=== PATIENT | male | born 1950 | race Caucasian/White ===

== ENCOUNTER 2021-04-03 06:51 | Outpatient (CLI) | payer MEDICARE, SELFPAY ==
[2021-04-03 07:42] LABS: Alanine Aminotransferase 19 U/L (4-50); Albumin Level 4.5 g/dL (3.5-5.1); Alkaline Phosphatase 76 U/L (38-126); Anion Gap 7 mmol/L (8-16); Aspartate Amino Transferase 32 U/L (17-59); Bilirubin,Total 0.9 mg/dL (0.2-1.3); Blood Urea Nitrogen 16 mg/dL (9-20); Calcium 9.8 mg/dL (8.4-10.2); Carbon Dioxide 28 mmol/L (22-30); Chloride 103 mmol/L (98-107); Cholesterol 161 mg/dL (0-200); Estimated Glomerular Filt Rate > 60; Glucose 152 mg/dL (75-110); HDL Direct 42 mg/dL; Potassium 4.2 mmol/L (3.4-5.0); Sodium 138 mmol/L (137-145); Triglycerides 114 mg/dL (<150)
[2021-04-03 07:43] LABS: Hemoglobin A1C 7.1 % (<5.7)
[2021-04-03 07:54] LABS: LDL Cholesterol Direct 87 mg/dL
[2021-04-03 08:12] LABS: Prostate Specific Antigen 4.2 ng/mL (< OR = 4.0)
== END 2021-04-03 06:52 | disposition home or self-care (01) ==
PROVIDERS: PCP Internal Medicine; Visit Provider Internal Medicine
DX: E78.5 Hyperlipidemia, unspecified (principal); I10 Essential (primary) hypertension; Z51.81 Encounter for therapeutic drug level monitoring; E11.65 Type 2 diabetes mellitus with hyperglycemia; Z12.5 Encounter for screening for malignant neoplasm of prostate
CPT/HCPCS: 36415; 80053; 80061; 83036; 84153; G0103

== ENCOUNTER 2021-10-13 08:45 | Outpatient (CLI) | payer MEDICARE, SELFPAY ==
[2021-10-13 09:29] LABS: Alanine Aminotransferase 19 U/L (4-50); Albumin Level 4.8 g/dL (3.5-5.1); Alkaline Phosphatase 68 U/L (38-126); Anion Gap 10 mmol/L (8-16); Aspartate Amino Transferase 23 U/L (17-59); Bilirubin,Total 0.4 mg/dL (0.2-1.3); Blood Urea Nitrogen 20 mg/dL (9-20); Calcium 9.6 mg/dL (8.4-10.2); Carbon Dioxide 25 mmol/L (22-30); Chloride 103 mmol/L (98-107); Cholesterol 120 mg/dL (0-200); Estimated Glomerular Filt Rate > 60; Glucose 140 mg/dL (65-110); HDL Direct 38 mg/dL; Potassium 4.6 mmol/L (3.4-5.0); Sodium 138 mmol/L (137-145); Triglycerides 111 mg/dL (<150)
[2021-10-13 09:55] LABS: LDL Cholesterol Direct 57 mg/dL
[2021-10-13 09:58] LABS: MALB Creatinine Ratio 14.4 mg/g (0-30); Microalbumin Urine Random 22.1 mg/L (0-16.7)
[2021-10-13 09:59] LABS: Prostate Specific Antigen 4.3 ng/mL (< OR = 4.0)
[2021-10-13 10:06] LABS: Hemoglobin A1C 6.5 % (<5.7)
== END 2021-10-13 08:46 | disposition home or self-care (01) ==
LOC: ANHLAB 08:49
PROVIDERS: PCP Internal Medicine; Visit Provider Nurse Practitioner
DX: E11.65 Type 2 diabetes mellitus with hyperglycemia (principal); R97.20 Elevated prostate specific antigen [PSA]; E78.5 Hyperlipidemia, unspecified
CPT/HCPCS: 36415; 80053; 80061; 82043; 83036; 84153

== ENCOUNTER 2022-05-02 07:36 | Outpatient (CLI) | payer MEDICARE, SELFPAY ==
[2022-05-02 08:31] LABS: Hemoglobin A1C 6.7 % (<5.7)
[2022-05-02 08:40] LABS: Alanine Aminotransferase 16 U/L (6-50); Albumin Level 4.4 g/dL (3.5-5.1); Alkaline Phosphatase 66 U/L (38-126); Anion Gap 5 mmol/L (8-16); Aspartate Amino Transferase 25 U/L (17-59); Bilirubin,Total 0.9 mg/dL (0.2-1.3); Blood Urea Nitrogen 15 mg/dL (9-20); Calcium 9.1 mg/dL (8.4-10.2); Carbon Dioxide 29 mmol/L (22-30); Chloride 104 mmol/L (98-107); Cholesterol 153 mg/dL (0-200); Estimated Glomerular Filt Rate > 60; Glucose 159 mg/dL (65-110); HDL Direct 40 mg/dL; Potassium 4.5 mmol/L (3.4-5.0); Sodium 138 mmol/L (137-145); Triglycerides 124 mg/dL (<150)
[2022-05-02 08:43] LABS: Creatinine Urine 73.7 mg/dL
[2022-05-02 08:48] LABS: MALB Creatinine Ratio 18.5 mg/g (0-30); Microalbumin Urine Random 13.6 mg/L (0-16.7)
[2022-05-02 08:52] LABS: LDL Cholesterol Direct 72 mg/dL
== END 2022-05-02 07:37 | disposition home or self-care (01) ==
PROVIDERS: PCP Internal Medicine; Visit Provider Internal Medicine
DX: I10 Essential (primary) hypertension (principal); Z51.81 Encounter for therapeutic drug level monitoring; E11.65 Type 2 diabetes mellitus with hyperglycemia; E78.5 Hyperlipidemia, unspecified; R97.20 Elevated prostate specific antigen [PSA]
CPT/HCPCS: 36415; 80053; 80061; 82043; 83036

== ENCOUNTER 2022-11-11 08:04 | Outpatient (CLI) | payer MEDICARE, SELFPAY ==
[2022-11-11 08:36] LABS: Alanine Aminotransferase 21 U/L (6-50); Albumin Level 4.7 g/dL (3.5-5.1); Alkaline Phosphatase 67 U/L (38-126); Anion Gap 7 mmol/L (8-16); Aspartate Amino Transferase 25 U/L (17-59); Blood Urea Nitrogen 15 mg/dL (9-20); Calcium 9.4 mg/dL (8.4-10.2); Carbon Dioxide 28 mmol/L (22-30); Chloride 102 mmol/L (98-107); Cholesterol 138 mg/dL (0-200); Estimated Glomerular Filt Rate > 60; Glucose 180 mg/dL (65-110); HDL Direct 33 mg/dL; Potassium 4.5 mmol/L (3.4-5.0); Sodium 137 mmol/L (137-145); Triglycerides 184 mg/dL (<150)
[2022-11-11 08:47] LABS: LDL Cholesterol Direct 63 mg/dL
[2022-11-11 09:06] LABS: Prostate Specific Antigen 4.1 ng/mL (< OR = 4.0)
== END 2022-11-11 08:05 | disposition home or self-care (01) ==
LOC: ANHLAB 08:07
PROVIDERS: PCP Nurse Practitioner; Visit Provider Nurse Practitioner
DX: E78.5 Hyperlipidemia, unspecified (principal); R97.20 Elevated prostate specific antigen [PSA]
CPT/HCPCS: 36415; 80053; 80061; 84153

== ENCOUNTER 2023-05-31 07:07 | Outpatient (CLI) | payer MEDICARE, SELFPAY ==
[2023-05-31 08:18] LABS: Alanine Aminotransferase 21 U/L (6-50); Albumin Level 4.7 g/dL (3.5-5.1); Alkaline Phosphatase 68 U/L (38-126); Anion Gap 6 mmol/L (8-16); Aspartate Amino Transferase 23 U/L (17-59); Bilirubin,Total 0.9 mg/dL (0.2-1.3); Blood Urea Nitrogen 16 mg/dL (9-20); Calcium 9.4 mg/dL (8.4-10.2); Carbon Dioxide 29 mmol/L (22-30); Chloride 102 mmol/L (98-107); Cholesterol 150 mg/dL (0-200); Estimated Glomerular Filt Rate > 60; Glucose 138 mg/dL (65-110); HDL Direct 38 mg/dL; Hemoglobin A1C 7.1 % (<5.7); Potassium 4.3 mmol/L (3.4-5.0); Sodium 137 mmol/L (137-145); Triglycerides 211 mg/dL (<150)
[2023-05-31 08:29] LABS: LDL Cholesterol Direct 74 mg/dL
[2023-05-31 08:46] LABS: Creatinine Urine 86.9 mg/dL
[2023-05-31 08:51] LABS: MALB Creatinine Ratio 24.2 mg/g (0-30)
== END 2023-05-31 07:08 | disposition home or self-care (01) ==
LOC: ANHLAB 07:08
PROVIDERS: PCP Family Medicine; Visit Provider Nurse Practitioner
DX: E78.5 Hyperlipidemia, unspecified (principal); R97.20 Elevated prostate specific antigen [PSA]; I10 Essential (primary) hypertension; Z51.81 Encounter for therapeutic drug level monitoring; E11.65 Type 2 diabetes mellitus with hyperglycemia
CPT/HCPCS: 36415; 80053; 80061; 82043; 83036; 84153

== ENCOUNTER 2023-09-15 08:17 | Outpatient (CLI) | payer MEDICARE, SELFPAY ==
--- NOTE | ~2023-09-15 | XR_ITS ---
Left Knee Technique: AP, lateral, and oblique views were obtained. Clinical History: Pain and swelling Findings: No fracture or dislocation is seen. There is severe osteoarthritis of the medial lateral co mpartments. There is mild degenerative change of the patellofemoral compartment.. Moderate joint effu vanita present with suspected small loose bodies there is chondrocalcinosis of the menisci. Impression: Severe osteoarthritis of the medial lateral compartments. Mild osteoarthritis of the patellofemoral c ompartment. Moderate joint effusion with minimal small loose bodies. Chondrocalcinosis of the menisci. Reviewed, dictated and finalized at location . Impression: Severe osteoarthritis of the medial lateral compartments. Mild osteoarthritis o f the patellofemoral compartment. Moderate joint effusion with minimal small loose bodies. Chondrocalcinosis of the menisci.
== END 2023-09-15 08:18 | disposition home or self-care (01) ==
PROVIDERS: PCP Nurse Practitioner; Visit Provider Nurse Practitioner
DX: M25.462 Effusion, left knee (principal); M23.42 Loose body in knee, left knee; M17.12 Unilateral primary osteoarthritis, left knee
CPT/HCPCS: 73562

== ENCOUNTER 2023-12-08 08:10 | Outpatient (CLI) | payer MEDICARE, SELFPAY ==
[2023-12-08 08:50] LABS: Cholesterol 126 mg/dL (0-200); HDL Direct 33 mg/dL; Triglycerides 151 mg/dL (<150)
[2023-12-08 09:01] LABS: LDL Cholesterol Direct 62 mg/dL
[2023-12-08 09:21] LABS: Hemoglobin A1C 6.9 % (<5.7)
== END 2023-12-08 08:11 | disposition home or self-care (01) ==
PROVIDERS: PCP Nurse Practitioner; Visit Provider Nurse Practitioner
DX: E11.9 Type 2 diabetes mellitus without complications (principal); E78.5 Hyperlipidemia, unspecified
CPT/HCPCS: 36415; 80061; 83036

== ENCOUNTER 2024-06-08 07:49 | Outpatient (CLI) | payer MEDICARE, SELFPAY ==
[2024-06-08 09:09] LABS: Alanine Aminotransferase 19 U/L (6-50); Albumin Level 4.8 g/dL (3.5-5.1); Alkaline Phosphatase 68 U/L (38-126); Anion Gap 12 mmol/L (4-12); Aspartate Amino Transferase 26 U/L (17-59); Blood Urea Nitrogen 17 mg/dL (9-20); Calcium 9.4 mg/dL (8.4-10.2); Carbon Dioxide 28 mmol/L (22-30); Chloride 98 mmol/L (98-107); Cholesterol 121 mg/dL (0-200); Estimated Glomerular Filt Rate > 60; Glucose 150 mg/dL (65-110); HDL Direct 42 mg/dL; Potassium 4.6 mmol/L (3.4-5.0); Sodium 138 mmol/L (137-145); Triglycerides 132 mg/dL (<150)
[2024-06-08 09:19] LABS: LDL Cholesterol Direct 64 mg/dL
== END 2024-06-08 07:50 | disposition home or self-care (01) ==
LOC: ANHLAB 07:52
PROVIDERS: PCP Nurse Practitioner; Visit Provider Nurse Practitioner
DX: E78.5 Hyperlipidemia, unspecified (principal); E11.9 Type 2 diabetes mellitus without complications; E78.49 Other hyperlipidemia; R97.20 Elevated prostate specific antigen [PSA]
CPT/HCPCS: 36415; 80053; 80061; 83036

== ENCOUNTER 2024-11-16 08:31 | Outpatient (CLI) | payer MEDICARE, SELFPAY ==
--- NOTE | ~2024-11-16 | XR_ITS ---
XR knee LT min 4V 11/16/2024 08:43 Indication: Osteoarthritis of the left knee Procedure: 4 views left knee Comparison: 09/15/2023 Findings: There is severe tricompartment osteoarthritis chest progressed since prior examination. Sma ll joint effusion. There is chondrocalcinosis. There is varus angulation. Impression: 1: Progression of severe tricompartment osteoarthritis of the left knee. Reviewed, dictated and finalized at location [] ITE HELPER Impression: 1: Progression of severe tricompartment osteoarthritis of the left knee.
== END 2024-11-16 08:32 | disposition home or self-care (01) ==
LOC: MICIMG 08:32
PROVIDERS: PCP Internal Medicine; Visit Provider Orthopaedic Surgery
DX: M17.12 Unilateral primary osteoarthritis, left knee (principal)
CPT/HCPCS: 73564

== ENCOUNTER 2024-12-01 07:15 | Outpatient (CLI) | payer MEDICARE, SELFPAY ==
[2024-12-01 08:12] LABS: Hemoglobin A1C 7.1 % (<5.7)
[2024-12-01 08:22] LABS: Alanine Aminotransferase 18 U/L (6-50); Albumin Level 4.7 g/dL (3.5-5.1); Alkaline Phosphatase 68 U/L (38-126); Anion Gap 4 mmol/L (4-12); Aspartate Amino Transferase 21 U/L (17-59); Bilirubin,Total 0.8 mg/dL (0.2-1.3); Blood Urea Nitrogen 12 mg/dL (9-20); Calcium 9.6 mg/dL (8.4-10.2); Carbon Dioxide 29 mmol/L (22-30); Chloride 103 mmol/L (98-107); Cholesterol 152 mg/dL (0-200); Estimated Glomerular Filt Rate > 60; Glucose 169 mg/dL (65-110); HDL Direct 43 mg/dL; Potassium 4.6 mmol/L (3.4-5.0); Sodium 136 mmol/L (137-145); Triglycerides 225 mg/dL (<150)
[2024-12-01 08:33] LABS: LDL Cholesterol Direct 64 mg/dL
[2024-12-01 08:52] LABS: Prostate Specific Antigen 4.9 ng/mL (< OR = 4.0)
== END 2024-12-01 07:16 | disposition home or self-care (01) ==
PROVIDERS: PCP Internal Medicine; Visit Provider Nurse Practitioner
DX: Z12.5 Encounter for screening for malignant neoplasm of prostate (principal); E11.9 Type 2 diabetes mellitus without complications; E78.49 Other hyperlipidemia
CPT/HCPCS: 36415; 80053; 80061; 83036; 84153; G0103

== ENCOUNTER 2025-01-02 07:19 | Outpatient (CLI) | payer MEDICARE, SELFPAY ==
--- OUTSIDE RECORDS SUMMARY | 2025-01-02 07:23 | XMS_ITS | Clinical Summary ---
Author Organization [facility] [employer] Address [address] [place] [address] Care Team Providers Care Sound Effects Technician Name Role Phone Baljinder Asencio MD Primary Care Provider [phone]- [phone] Source Comments [facility],non-owned Affiliates and Associated Physician Practices is amultiple site organization consisting of ambulatory clinics and hospital sitesin [place], [place], [place] and [place]. This disclosure is being madepursuant to the Care Everywhere program and may not contain all information available regarding this patient. Last updated 18.[facility] [employer] Immunizations Name Administration Dates Next Due INFLUENZA VACCINE, HIGH-DOSE , QUADR. (FLUZONE HIGH-DOSE QUADRIVALENT; 65Y+), 0.7 ML (HD-IIV4) 09/02/2016 Social History Tobacco Use Types Packs/Day Years Used Date Smoking Tobacco: Never Assessed Sex and Gender Information Value Date Recorded Sex Assigned at Not on file Gender Identity Not on file Sexual Orientation Not on file Plan of Treatment Health Maintenance Due Date Last Done Comments COLOGUARD (AGES 45-75) - COL ON CA SCREENING 1951 COLON MONITORING 1951 COLONOSCOPY - COLON CA SCREENING 1951 CT COLONOGRAPHY - COLON CA SCREENING 1950 Colorectal Cancer Screening 1950 FIT - COLON CA SCREENING 1951 FLEX SIG - COLON CA SCREENING 1951 LIPID TESTING 1950 HEPATITIS C SCREENING 07/07/1969 DTAP/TDAP/TD VACCINES (1 - Tdap) 1970 PNEUMOCOCCAL VACCINE 50+ (1 of 1 - PCV) 2001 ZOSTER VACCINE (1 of 2) 2001 COVID-19 VACCINE ( - 2023-2 5 season) 2024 INFLUENZA VACCINE (#1) 2024 09/02/2016 DEPRESSION SCREENING 11/29/2024 Respiratory Syncytial Virus (RSV) Vaccine Pt: or over 60 yrs (1 - 1-dose 75+ series) 2026 HEPATITIS B VACCINE Aged Out No longe r eligible based on patient's age to complete this topic HIB VACCINE Aged Out No longer eligi ble based on patient's age to complete this topic HPV VACCINE Aged Out No longer eligi ble based on patient's age to complete this topic MENINGOCOCCAL (Group B) VACCINE Aged Out No longer eligible based on patient's age to complete this topic MENINGOCOCCAL VACCINE Aged Out No bita mehran eligible based on patient's age to complete this topic Care Teams Sound Effects Technician Relationship Specialty Start Date End Date Baljinder Asencio MD [address] [facility] [address] [place], [place] [phone] PCP - General Family Medicine 09/02/16
--- OUTSIDE RECORDS SUMMARY | 2025-01-02 07:23 | XMS_ITS | Encounter Summary ---
Author Organization [facility] Address [address] [place] [address] Care Team Providers Care Heel Seat Flap Stapler Name Role Phone Unavailable Primary Care Provider Unavailabl e Prior Encounters Date Type Department Care Team Description 10/30/2021 Travel 10/30/2021 10:[address] ATTENDANT Office Visit [facility] [address] [place] [phone] Baljinder Pedro, SANDY 12/18/2019 Converted CPS Chart Documents [facility] [address] [place] [phone] <No scans attached> 12/18/[address] [facility] [address] [place] [phone] <No scans attached> Plan of Treatment Not on file Procedures Procedure Name Priority Date/Time Associated Diagnosis Comments 31 RECEMENT CROWN Routine 10/30/2021 10: [address]ENDANT BITEWINGS - FOUR RADIOGRAPHIC IMAGES Routine 10/30/2021 10:[address] ATTENDANT PERIODIC ORAL EVALUATION - ESTABLISHED PATIENT Routine 10/30/2021 10:[address] ATTENDANT 30 PFM CROWN Routine 10/30/2021 12:[address] ATTENDANT 19 PFM CROWN Routine 10/30/2021 12:[address] ATTENDANT 31 PFM CROWN Routine 10/30/2021 12:[address] ATTENDANT 18 IMPLANT ZIRCONIA CROWN Routine 2019 2:[address] ATTENDANT 14 IMPLANT ZIRCONIA CROWN Routine 2019 2:[address] ATTENDANT 13 IMPLANT ZIRCONIA CROWN Routine 2019 2:[address] ATTENDANT 18 CUSTOM FABRICATED ABUTMENT ? INCLUDES PLACEMENT Routine 09/30/2020 2:[address] ATTENDANT 14 CUSTOM FABRICATED ABUTMENT ? INCLUDES PLACEMENT Routine 09/30/2020 2:[address] ATTENDANT 13 CUSTOM FABRICATED ABUTMENT ? INCLUDES PLACEMENT Routine 09/30/2020 2:[address] ATTENDANT BITEWINGS - FOUR RADIOGRAPHIC IMAGES Routine 07/05/2020 2:00 AM CDT ADDITIONAL X-RAY Routine 07/05/2020 2:00 AM CDT TREATMENT OF COMPLICATIONS (POST-SURGICAL) - UNUSUAL CIRCUMSTANCES, BY REPORT Routine 07/04/2020 2:00 AM CDT PANORAMIC RADIOGRAPHIC IMAGE Routine 07/04/2020 2:00 AM CDT ADDITIONAL X-RAY Routine 07/04/2020 2:00 AM CDT SINGLE X-RAY Routine 07/04/2020 2:00 AM CDT TREATMENT OF COMPLICATIONS (POST-SURGICAL) - UNUSUAL CIRCUMSTANCES, BY REPORT Routine 01/30/2020 2:[address] ATTENDANT NC X-RAY Routine 01/30/2020 2:[address] ATTENDANT ADDITIONAL X-RAY Routine 01/30/2020 2:[address] ATTENDANT SINGLE X-RAY Routine 01/30/2020 2:[address] ATTENDANT 14 GUIDED TISSUE REGENERATION, NATURAL TEETH - RESORBABLE BARRIER, PER SITE Routine 01/05/2020 2:[address] ATTENDANT 18 IMPLANT Routine 01/05/2020 2:[address] ATTENDANT 14 IMPLANT Routine 01/05/2020 2:[address] ATTENDANT 13 IMPLANT Routine 01/05/2020 2:[address] ATTENDANT 14 SINUS AUGMENTATION WITH BONE OR BONE SUBSTITUTES VIA A LATERAL OPEN APPROACH Routine 01/05/2020 2:[address] ATTENDANT 4 RETAINER CROWN - ZIRCONIA IN OFFICE - POST Routine 01/03/2020 2:[address] ATTENDANT 2 RETAINER CROWN - ZIRCONIA IN OFFICE - POST Routine 01/03/2020 2:[address] ATTENDANT 3 PONTIC - ZIRCONIA IN OFFICE - POST Routine 01/03/2020 2:[address] ATTENDANT 4 CUSTOM FABRICATED ABUTMENT ? INCLUDES PLACEMENT Routine 01/03/2020 2:[address] ATTENDANT 2 CUSTOM FABRICATED ABUTMENT ? INCLUDES PLACEMENT Routine 01/03/2020 2:[address] ATTENDANT TREATMENT OF COMPLICATIONS (POST-SURGICAL) - UNUSUAL CIRCUMSTANCES, BY REPORT Routine 12/15/2019 2:[address] ATTENDANT PANORAMIC RADIOGRAPHIC IMAGE Routine 12/15/2019 2:[address] ATTENDANT PERIO MAINTENANCE Routine 08/07/2019 2:0 0 AM CDT ORAL HYGIENE INSTRUCTIONS Routine 2018 2:00 AM CDT TREATMENT OF COMPLICATIONS (POST-SURGICAL) - UNUSUAL CIRCUMSTANCES, BY REPORT Routine 08/03/2019 2:00 AM CDT 4 BONE GRAFT AT TIME OF IMPLANT PLACEMENT Routine 07/03/2019 2:00 AM CDT 4 GUIDED TISSUE REGENERATION, NATURAL TEETH - RESORBABLE BARRIER, PER SITE Routine 07/03/2019 2:00 AM CDT 4 IMPLANT Routine 07/03/2019 2:00 AM CDT 2 IMPLANT Routine 07/03/2019 2:00 AM CDT 3 SINUS AUGMENTATION WITH BONE OR BONE SUBSTITUTES VIA A LATERAL OPEN APPROACH Routine 07/03/2019 2:00 AM CDT CANCELLED APPOINTMENT Routine 05/18/2019 2:00 AM CDT PERIO MAINTENANCE Routine 03/14/2019 2:0 0 AM CDT ORAL HYGIENE INSTRUCTIONS Routine 2018 2:00 AM CDT BITEWINGS - FOUR RADIOGRAPHIC IMAGES Routine 03/14/2019 2:00 AM CDT OCCLUSAL GUARD DELIVERY Routine 02/16/20 2:00 AM CDT ORAL HYGIENE INSTRUCTIONS Routine 2018 2:[address] ATTENDANT OCCLUSAL GUARD ? HARD APPLIANCE, FULL ARCH Routine 01/31/2019 2:[address] ATTENDANT 18 BONE REPLACEMENT GRAFT FOR RIDGE PRESERVATION - PER SITE Routine 01/31/2019 2:[address] ATTENDANT 13 BONE REPLACEMENT GRAFT FOR RIDGE PRESERVATION - PER SITE Routine 01/31/2019 2:[address] ATTENDANT 3 BONE REPLACEMENT GRAFT FOR RIDGE PRESERVATION - PER SITE Routine 01/31/2019 2:[address] ATTENDANT 2 BONE REPLACEMENT GRAFT FOR RIDGE PRESERVATION - PER SITE Routine 01/31/2019 2:[address] ATTENDANT 18 GUIDED TISSUE REGENERATION, NATURAL TEETH - RESORBABLE BARRIER, PER SITE Routine 01/31/2019 2:[address] ATTENDANT 13 GUIDED TISSUE REGENERATION, NATURAL TEETH - RESORBABLE BARRIER, PER SITE Routine 01/31/2019 2:[address] ATTENDANT 9 GUIDED TISSUE REGENERATION, NATURAL TEETH - RESORBABLE BARRIER, PER SITE Routine 01/31/2019 2:[address] ATTENDANT 3 GUIDED TISSUE REGENERATION, NATURAL TEETH - RESORBABLE BARRIER, PER SITE Routine 01/31/2019 2:[address] ATTENDANT 2 GUIDED TISSUE REGENERATION, NATURAL TEETH - RESORBABLE BARRIER, PER SITE Routine 01/31/2019 2:[address] ATTENDANT 9 BONE REPLACEMENT GRAFT ? RETAINED NATURAL TOOTH ? FIRST SITE IN QUADRANT Routine 01/31/2019 2:[address] ATTENDANT UR PERIODONTAL SCALING AND ROOT PLANING - FOUR OR MORE TEETH PER QUADRANT Routine 01/31/2019 2:[address] ATTENDANT LR PERIODONTAL SCALING AND ROOT PLANING - FOUR OR MORE TEETH PER QUADRANT Routine 01/31/2019 2:[address] ATTENDANT LL PERIODONTAL SCALING AND ROOT PLANING - FOUR OR MORE TEETH PER QUADRANT Routine 01/31/2019 2:[address] ATTENDANT 14 UL OSSEOUS SURGERY ? ONE TO THREE CONTIGUOUS TEETH Routine 01/31/2019 2:[address] ATTENDANT 18 EXTRACTION, ERUPTED TOOTH REQUIRING REMOVAL OF BONE AND/OR SECTIONING OF TOOTH Routine 01/31/2019 2:[address] ATTENDANT 13 EXTRACTION, ERUPTED TOOTH REQUIRING REMOVAL OF BONE AND/OR SECTIONING OF TOOTH Routine 01/31/2019 2:[address] ATTENDANT 3 EXTRACTION, ERUPTED TOOTH REQUIRING REMOVAL OF BONE AND/OR SECTIONING OF TOOTH Routine 01/31/2019 2:[address] ATTENDANT 2 EXTRACTION, ERUPTED TOOTH REQUIRING REMOVAL OF BONE AND/OR SECTIONING OF TOOTH Routine 01/31/2019 2:[address] ATTENDANT PERIO CONSULT Routine 01/17/2019 2:[address] ATTENDANT Visit Diagnoses Not on file Insurance
--- OUTSIDE RECORDS SUMMARY | 2025-01-02 07:23 | XMS_ITS | Referral Summary ---
Author Organization [facility] Address [address] [place] [address] Care Team Providers Care Organizational Consultant Name Role Phone Unavailable Primary Care Provider Unavailabl e Allergies No known active allergies Medications No known medications Active Problems No known active problems Social History Tobacco Use Types Packs/Day Years Used Date Smoking Tobacco: Never Assessed Sex and Gender Information Value Date Recorded Sex Assigned at Not on file Legal Sex Male 1:02 AM PST Gender Identity Not on file Sexual Orientation Not on file Plan of Treatment Not on file Procedures Procedure Name Priority Date/Time Associated Diagnosis Comments PERIO MAINTENANCE Routine 08/07/2019 2:00 AM CDT LL PERIODONTAL SCALING AND ROOT PLANING - FOUR OR MORE TEETH PER QUADRANT Routine 01/31/2019 2:00 AM AIRCRAFT SERVICER from Last 3 Months or Most Recently Relevant to Health Maintenance Insurance
--- OUTSIDE RECORDS SUMMARY | 2025-01-02 07:23 | XMS_ITS | Clinical Summary ---
Author Organization [facility] Address [address] [place] [address] Care Team Providers Care Donor Relations Associate Name Role Phone Unavailable Primary Care Provider [...] Health Maintenance Due Date Last Done Comments Periodontal Maintenance 11/07/2019 08/07/2019, 03/14 Scaling and Root Planing 02/14/2021 019, 01/31/2019, 01/31/2019 Meningococcal B Vaccine Aged Out No l onger eligible based on patient's age to complete this topic Procedures Procedure Name Priority Date/Time Associated Diagnosis Comments PERIO MAINTENANCE Routine 08/07/2019 2:00 AM CDT LL PERIODONTAL SCALING AND ROOT PLANING - FOUR OR MORE TEETH PER QUADRANT Routine 01/31/2019 2:00 AM SOFTWARE APPLICATION TESTER from Last 3 Months or Most Recently Relevant to Health Maintenance Insurance [facility] PPO
--- OUTSIDE RECORDS SUMMARY | 2025-01-02 07:24 | XMS_ITS ---
Author Organization [facility] Address [address] [place] [address] Care Team Providers Care Compensation Supervisor Name Role Phone Unavailable Unavailable Unavailable Surgery Details Not on file Complications Check Surgery Details section. Procedure Estimated Blood Loss Check Surgery Details section. Procedure Findings Check Surgery Details section. Procedure Specimens Taken Check Surgery Details section.
--- OUTSIDE RECORDS SUMMARY | 2025-01-02 07:24 | XMS_ITS | CCD ---
Author Organization [facility] Address [address] [place] [address] Care Team Providers Care Vamp Creaser Name Role Phone Unavailable Primary Care Provider [...] TEETH PER QUADRANT Routine 01/31/2019 2:00 AM WINDOWS SYSTEM ADMIN from Last 3 Months or Most Recently Relevant to Health Maintenance
--- OUTSIDE RECORDS SUMMARY | 2025-01-02 07:24 | XMS_ITS | Patient Health Summary ---
Author Organization [facility] Address [address] [place] [address] Care Team Providers Care Museum Educator Name Role Phone Baljinder Asencio MD Primary Care Provider [phone]- [phone] Note from [facility],non-owned Affiliates and Associated Physician Practices is amultiple site organization consisting of ambulatory clinics and hospital sitesin [place], [place], [place] and [place]. This disclosure is being madepursuant to the Care Everywhere program and may not contain all information available regarding this patient. Last updated 18.[facility] Immunizations * INFLUENZA VACCINE, HIGH-DOSE, QUADR. (FLUZONE HIGH-DOSE QUADRIVALENT; 65Y+), 0.7 ML (HD-IIV4)(Given 09/02/2016) Social History Tobacco Use Types Packs/Day Years Used Date Smoking Tobacco: Never Assessed Sex and Gender Information Value Date Recorded Sex Assigned at Not on file Gender Identity Not on file Sexual Orientation Not on file Care Teams Museum Educator Relationship Specialty Start Date End Date Baljinder Asencio MD [address] [facility] [address] [place], [place] [phone] PCP - General Family Medicine 09/02/16
--- OUTSIDE RECORDS SUMMARY | 2025-01-02 07:24 | XMS_ITS | Referral Summary ---
Author Organization [facility] Address [address] [place] [address] Care Team Providers Care Registered Nurse Practitioner Name Role Phone Baljinder Asencio MD Primary Care Provider [phone]- [phone] Source Comments [facility],non-owned Affiliates and Associated Physician Practices is amultiple site organization consisting of ambulatory clinics and hospital sitesin [place], [place], [place] and [place]. This disclosure is being madepursuant to the Care Everywhere program and may not contain all information available regarding this patient. Last updated 18.[facility] Immunizations Name Administration Dates Next Due INFLUENZA VACCINE, HIGH-DOSE , QUADR. (FLUZONE HIGH-DOSE QUADRIVALENT; 65Y+), 0.7 ML (HD-IIV4) 09/02/2016 Social History Tobacco Use Types Packs/Day Years Used Date Smoking Tobacco: Never Assessed Sex and Gender Information Value Date Recorded Sex Assigned at Not on file Gender Identity Not on file Sexual Orientation Not on file Plan of Treatment Not on file Care Teams Registered Nurse Practitioner Relationship Specialty Start Date End Date Baljinder Asencio MD [address] [place] [phone] PCP - General Family Medicine 09/02/16
[2025-01-02 08:26] LABS: LDL Cholesterol Direct 61 mg/dL
[2025-01-02 08:46] LABS: Prostate Specific Antigen 4.8 ng/mL (< OR = 4.0)
[2025-01-02 08:55] LABS: Alanine Aminotransferase 18 U/L (6-50); Alkaline Phosphatase 72 U/L (38-126); Aspartate Amino Transferase 21 U/L (17-59); Bilirubin,Total 1.2 mg/dL (0.2-1.3); Blood Urea Nitrogen 17 mg/dL (9-20); Calcium 9.8 mg/dL (8.4-10.2); Chloride 99 mmol/L (98-107); Cholesterol 126 mg/dL (0-200); Estimated Glomerular Filt Rate > 60; Glucose 146 mg/dL (65-110); HDL Direct 36 mg/dL; Potassium 4.2 mmol/L (3.4-5.0); Sodium 137 mmol/L (137-145); Triglycerides 167 mg/dL (<150)
[2025-01-02 09:10] LABS: Anion Gap 15 mmol/L (4-12); Carbon Dioxide 23 mmol/L (22-30)
[2025-01-02 11:55] LABS: Hemoglobin A1C 7.1 % (<5.7)
== END 2025-01-02 07:20 | disposition home or self-care (01) ==
LOC: ANHLAB 07:20
PROVIDERS: PCP Internal Medicine; Visit Provider Nurse Practitioner
DX: E78.5 Hyperlipidemia, unspecified (principal); E11.65 Type 2 diabetes mellitus with hyperglycemia; E11.9 Type 2 diabetes mellitus without complications; Z12.5 Encounter for screening for malignant neoplasm of prostate
CPT/HCPCS: 36415; 80053; 80061; 83036; 84153; G0103

== ENCOUNTER 2025-02-28 10:08 | Outpatient (CLI) | payer MEDICARE, SELFPAY ==
[2025-02-28 10:26] LABS: Hematocrit 43.7 % (42.0-52.0); Hemoglobin 14.8 g/dL (14.0-18.0)
[2025-02-28 10:44] LABS: Albumin Level 4.6 g/dL (3.5-5.1); Estimated Glomerular Filt Rate > 60; Glucose 149 mg/dL (65-110)
--- OUTSIDE RECORDS SUMMARY | 2025-02-28 11:24 | XMS_ITS | Clinical Summary ---
Author Organization [facility] Address [address] [place] [address] Care Team Providers Care Nurse Tech Name Role Phone Unavailable Primary Care Provider [...] TEETH PER QUADRANT Routine 01/31/2019 2:00 AM MIDDLE SCHOOL MATH TEACHER from Last 3 Months or Most Recently Relevant to Health Maintenance Insurance [facility] PPO
--- OUTSIDE RECORDS SUMMARY | 2025-02-28 11:24 | XMS_ITS | Encounter Summary ---
Author Organization [facility] Address [address] [place] [address] Care Team Providers Care Electrophysiology Nurse Practitioner Name Role Phone Unavailable Primary Care Provider Unavailabl e Prior Encounters Date Type Department Care Team Description 10/30/2021 Travel 10/30/2021 10:30 AM LEAD CASE MANAGER Office Visit [facility] [address] [place] [phone] Baljinder Pedro, DMD 12/18/2019 Converted CPS Chart Documents [facility] [address] [place] [phone] <No scans attached> 12/18/2019 Converted 13x Documents [facility] [address] [place] [phone] <No scans attached> Plan of Treatment Not on file Procedures Procedure Name Priority Date/Time Associated Diagnosis Comments 31 RECEMENT CROWN Routine 10/30/2021 10: 30 AM LEAD CASE MANAGER BITEWINGS - FOUR RADIOGRAPHIC IMAGES Routine 10/30/2021 10:30 AM LEAD CASE MANAGER PERIODIC ORAL EVALUATION - ESTABLISHED PATIENT Routine 10/30/2021 10:30 AM LEAD CASE MANAGER 30 PFM CROWN Routine 10/30/2021 12:00 AM LEAD CASE MANAGER 19 PFM CROWN Routine 10/30/2021 12:00 AM LEAD CASE MANAGER 31 PFM CROWN Routine 10/30/2021 12:00 AM LEAD CASE MANAGER 18 IMPLANT ZIRCONIA CROWN Routine 2019 2:00 AM LEAD CASE MANAGER 14 IMPLANT ZIRCONIA CROWN Routine 2019 2:00 AM LEAD CASE MANAGER 13 IMPLANT ZIRCONIA CROWN Routine 2019 2:00 AM LEAD CASE MANAGER 18 CUSTOM FABRICATED ABUTMENT INCLUDES PLACEMENT Routine 09/30/2020 2:00 AM LEAD CASE MANAGER 14 CUSTOM FABRICATED ABUTMENT INCLUDES PLACEMENT Routine 09/30/2020 2:00 AM LEAD CASE MANAGER 13 CUSTOM FABRICATED ABUTMENT INCLUDES PLACEMENT Routine 09/30/2020 2:00 AM LEAD CASE MANAGER BITEWINGS - FOUR RADIOGRAPHIC IMAGES Routine 07/05/2020 [...] CIRCUMSTANCES, BY REPORT Routine 01/30/2020 2:00 AM LEAD CASE MANAGER NC X-RAY Routine 01/30/2020 2:00 AM LEAD CASE MANAGER ADDITIONAL X-RAY Routine 01/30/2020 2:00 AM LEAD CASE MANAGER SINGLE X-RAY Routine 01/30/2020 2:00 AM LEAD CASE MANAGER 14 GUIDED TISSUE REGENERATION, NATURAL TEETH - RESORBABLE BARRIER, PER SITE Routine 01/05/2020 2:00 AM LEAD CASE MANAGER 18 IMPLANT Routine 01/05/2020 2:00 AM LEAD CASE MANAGER 14 IMPLANT Routine 01/05/2020 2:00 AM LEAD CASE MANAGER 13 IMPLANT Routine 01/05/2020 2:00 AM LEAD CASE MANAGER 14 SINUS AUGMENTATION WITH BONE OR BONE SUBSTITUTES VIA A LATERAL OPEN APPROACH Routine 01/05/2020 2:00 AM LEAD CASE MANAGER 4 RETAINER CROWN - ZIRCONIA IN OFFICE - POST Routine 01/03/2020 2:00 AM LEAD CASE MANAGER 2 RETAINER CROWN - ZIRCONIA IN OFFICE - POST Routine 01/03/2020 2:00 AM LEAD CASE MANAGER 3 PONTIC - ZIRCONIA IN OFFICE - POST Routine 01/03/2020 2:00 AM LEAD CASE MANAGER 4 CUSTOM FABRICATED ABUTMENT INCLUDES PLACEMENT Routine 01/03/2020 2:00 AM LEAD CASE MANAGER 2 CUSTOM FABRICATED ABUTMENT INCLUDES PLACEMENT Routine 01/03/2020 2:00 AM LEAD CASE MANAGER TREATMENT OF COMPLICATIONS (POST-SURGICAL) - UNUSUAL CIRCUMSTANCES, BY REPORT Routine 12/15/2019 2:00 AM LEAD CASE MANAGER PANORAMIC RADIOGRAPHIC IMAGE Routine 12/15/2019 2:00 AM LEAD CASE MANAGER PERIO MAINTENANCE Routine 08/07/2019 2:0 0 AM [...] ORAL HYGIENE INSTRUCTIONS Routine 2018 2:00 AM LEAD CASE MANAGER OCCLUSAL GUARD HARD APPLIANCE, FULL ARCH Routine 01/31/2019 2:00 AM LEAD CASE MANAGER 18 BONE REPLACEMENT GRAFT FOR RIDGE PRESERVATION - PER SITE Routine 01/31/2019 2:00 AM LEAD CASE MANAGER 13 BONE REPLACEMENT GRAFT FOR RIDGE PRESERVATION - PER SITE Routine 01/31/2019 2:00 AM LEAD CASE MANAGER 3 BONE REPLACEMENT GRAFT FOR RIDGE PRESERVATION - PER SITE Routine 01/31/2019 2:00 AM LEAD CASE MANAGER 2 BONE REPLACEMENT GRAFT FOR RIDGE PRESERVATION - PER SITE Routine 01/31/2019 2:00 AM LEAD CASE MANAGER 18 GUIDED TISSUE REGENERATION, NATURAL TEETH - RESORBABLE BARRIER, PER SITE Routine 01/31/2019 2:00 AM LEAD CASE MANAGER 13 GUIDED TISSUE REGENERATION, NATURAL TEETH - RESORBABLE BARRIER, PER SITE Routine 01/31/2019 2:00 AM LEAD CASE MANAGER 9 GUIDED TISSUE REGENERATION, NATURAL TEETH - RESORBABLE BARRIER, PER SITE Routine 01/31/2019 2:00 AM LEAD CASE MANAGER 3 GUIDED TISSUE REGENERATION, NATURAL TEETH - RESORBABLE BARRIER, PER SITE Routine 01/31/2019 2:00 AM LEAD CASE MANAGER 2 GUIDED TISSUE REGENERATION, NATURAL TEETH - RESORBABLE BARRIER, PER SITE Routine 01/31/2019 2:00 AM LEAD CASE MANAGER 9 BONE REPLACEMENT GRAFT RETAINED NATURAL TOOTH FIRST SITE IN QUADRANT Routine 01/31/2019 2:00 AM LEAD CASE MANAGER UR PERIODONTAL SCALING AND ROOT PLANING - FOUR OR MORE TEETH PER QUADRANT Routine 01/31/2019 2:00 AM LEAD CASE MANAGER LR PERIODONTAL SCALING AND ROOT PLANING - FOUR OR MORE TEETH PER QUADRANT Routine 01/31/2019 2:00 AM LEAD CASE MANAGER LL PERIODONTAL SCALING AND ROOT PLANING - FOUR OR MORE TEETH PER QUADRANT Routine 01/31/2019 2:00 AM LEAD CASE MANAGER 14 UL OSSEOUS SURGERY ONE TO THREE CONTIGUOUS TEETH Routine 01/31/2019 2:00 AM LEAD CASE MANAGER 18 EXTRACTION, ERUPTED TOOTH REQUIRING REMOVAL OF BONE AND/OR SECTIONING OF TOOTH Routine 01/31/2019 2:00 AM LEAD CASE MANAGER 13 EXTRACTION, ERUPTED TOOTH REQUIRING REMOVAL OF BONE AND/OR SECTIONING OF TOOTH Routine 01/31/2019 2:00 AM LEAD CASE MANAGER 3 EXTRACTION, ERUPTED TOOTH REQUIRING REMOVAL OF BONE AND/OR SECTIONING OF TOOTH Routine 01/31/2019 2:00 AM LEAD CASE MANAGER 2 EXTRACTION, ERUPTED TOOTH REQUIRING REMOVAL OF BONE AND/OR SECTIONING OF TOOTH Routine 01/31/2019 2:00 AM LEAD CASE MANAGER PERIO CONSULT Routine 01/17/2019 2:00 AM LEAD CASE MANAGER Visit Diagnoses Not on file Insurance
--- OUTSIDE RECORDS SUMMARY | 2025-02-28 11:24 | XMS_ITS | Clinical Summary ---
Author Organization [facility] [employer] Address [address] [place] [address] Care Team Providers Care River Rafting Guide Name Role Phone Baljinder Asencio MD Primary Care Provider [phone] Source Comments [facility],non-owned Affiliates and Associated Physician Practices is amultiple site organization consisting of ambulatory clinics and hospital sitesin [place], [place], [place] and [place]. This disclosure is being madepursuant to the Care Everywhere program and may not contain all information available regarding this patient. Last updated 18.[facility] [employer] Immunizations Name Administration Dates Next Due INFLUENZA [...] VACCINE (1 of 2) 2001 COVID-19 VACCINE (2023-2 5 season) 2024 INFLUENZA VACCINE (#1) 2024 [...] to complete this topic MENINGOCOCCAL (Group B) VACC INE SHARED DECISION-MAKING Aged Out No longer eligibl e based on patient's age to complete this topic MENINGOCOCCAL GROUPS A/C/Y/W VACCINE Aged Out No longer eligible b ased on patient's age to complete this topic Care Teams River Rafting Guide Relationship Specialty Start Date End Date Baljinder Asencio MD [address] [place] [phone] PCP - General Family Medicine 09/02/16
== END 2025-02-28 10:09 | disposition home or self-care (01) ==
LOC: ANHLAB 10:10
PROVIDERS: PCP Internal Medicine; Visit Provider Orthopaedic Surgery
DX: E78.49 Other hyperlipidemia (principal); M17.12 Unilateral primary osteoarthritis, left knee
CPT/HCPCS: 36415; 82040; 82565; 82947; 85014; 85018

== ENCOUNTER 2025-03-07 07:25 | Outpatient (CLI) | payer MEDICARE, SELFPAY ==
--- OUTSIDE RECORDS SUMMARY | 2025-03-07 07:28 | XMS_ITS | Clinical Summary ---
Author Organization [facility] [employer] Address [address] [place] [address] Care Team Providers Care Director Of Premium Seat Sales Name Role Phone Baljinder Asencio MD Primary Care Provider [phone]- [phone] Source Comments [facility],non-owned Affiliates and Associated Physician Practices is amultiple site organization consisting of ambulatory clinics and hospital sitesin [place], [place], [place] and [place]. This disclosure is being madepursuant to the Care Everywhere program and may not contain all information available regarding this patient. Last updated 18.[facility] [employer] Immunizations Name Administration Dates Next Due INFLUENZA [...] VACCINE (1 of 2) 2001 COVID-19 VACCINE (1 2023-2 5 season) 2024 DEPRESSION SCREENING 11/29/2024 INFLUENZA VACCINE (Season Ended) 2025 09/02/20 Respiratory Syncytial Virus (RSV) Vaccine Pt: or [...] age to complete this topic Care Teams Director Of Premium Seat Sales Relationship Specialty Start Date End Date Baljinder Asencio MD [address] [place] [phone] PCP - General Family Medicine 09/02/16
--- NOTE | 2025-03-07 07:33 | ECG_ITS ---
Test Date: 2025-03-07 07:42:32 Measurements Intervals [place] Rate: 69 P: 55 WI: 242 QRS: -46 QRSD: 111 T: -26 QT: 401 QTc: 432 Interpretive Statements SINUS RHYTHM WITH FIRST DEGREE AV BLOCK LEFT ANTERIOR FASCICULAR BLOCK BORDERLINE T WAVE ABNORMALITY- DIFFUSE LEADS ABNORMAL ECG No previous ECG available for comparison Electronically Signed On 03-07-2025 07:48:49 CDT by Audie Hector D.O.
== END 2025-03-07 07:26 | disposition home or self-care (01) ==
PROVIDERS: PCP Internal Medicine; Visit Provider Orthopaedic Surgery
DX: I10 Essential (primary) hypertension (principal); I44.4 Left anterior fascicular block; I44.0 Atrioventricular block, first degree; R94.31 Abnormal electrocardiogram [ECG] [EKG]
CPT/HCPCS: 93005

== ENCOUNTER 2025-05-30 09:50 | Outpatient (CLI) | payer MEDICARE, SELFPAY ==
--- OUTSIDE RECORDS SUMMARY | 2025-05-30 10:17 | XMS_ITS | Clinical Summary ---
Author Organization [facility] Health Address [address] [place] [address] Care Team Providers Care Bicycle Repairman Name Role Phone Unavailable Primary Care Provider [...] 08/07/2019, 03/14 Scaling and Root Planing 02/14/2021 01/31/2019, 03/2019, 01/31/2019 Dental Oral Exam 05/01/2022 10/30/2021 Dental X-Ray: Bitewings 05/01/2022 10/30/2021 Dental X-Ray: Full Mouth 04/22/2024 04/21/2021 Dental X-Ray: Panoramic 04/22/2024 04/21/2021, 07/04, 12/15/2019 Procedures Procedure Name Priority Date/Time Associated Diagnosis Comments PERIODIC ORAL EVALUATION - ESTABLISHED PATIENT Routine 10/30/2021 10:30 AM SOLE STAINER PANORAMIC RADIOGRAPHIC IMAGE Routine 07/04/2020 2:00 AM CDT PERIO MAINTENANCE Routine 08/07/2019 2:0 0 AM CDT LL PERIODONTAL SCALING AND ROOT PLANING - FOUR OR MORE TEETH PER QUADRANT Routine 01/31/2019 2:00 AM SOLE STAINER from Last 3 Months or Most Recently Relevant to Health Maintenance Insurance PPO
--- OUTSIDE RECORDS SUMMARY | 2025-05-30 10:17 | XMS_ITS | Clinical Summary ---
Author Organization [facility] Address [address] [place] [address] Care Team Providers Care Environmental Compliance Technician Name Role Phone Baljinder Asencio MD Primary Care Provider [phone]- [phone] Source Comments [facility],non-owned Affiliates and Associated Physician Practices is amultiple site organization consisting of ambulatory clinics and hospital sitesin [place], [place], [place] and [place]. This disclosure is being madepursuant to the Care Everywhere program and may not contain all information available regarding this patient. Last updated 18.[facility] Immunizations Immunization Administration Dates Next Due INFLUENZA VACCINE, HIGH-DOSE , QUADR. (FLUZONE HIGH-DOSE QUADRIVALENT; 65Y+), 0.7 ML ([id number]) 09/02/2016 Social History Tobacco Use Types Packs/Day Years Used Date Smoking Tobacco: Never Assessed Sex and Gender Information Value Date Recorded Sex Assigned at Not on file Legal Sex Male 12:42 PM CDT Gender Identity Not on file Sexual Orientation [...] (1 of 2) 2001 COVID-19 VACCINE (1 - 2023-2 5 season) 2024 DEPRESSION SCREENING 11/29/2024 INFLUENZA VACCINE (Season Ended) 2025 09/02/20 16 Respiratory Syncytial Virus (RSV) Vaccine Pt: or [...] on patient's age to complete this topic Insurance Care Teams Environmental Compliance Technician Relationship Specialty Start Date End Date Baljinder Asencio MD [address] [facility] [address] [place], [place] [phone] PCP - General Family Medicine 09/02/16
--- OUTSIDE RECORDS SUMMARY | 2025-05-30 10:18 | XMS_ITS | Encounter Summary ---
Author Organization [facility] Health Address [address] [place] [address] Care Team Providers Care Injection Molding Operator Name Role Phone Unavailable Primary Care Provider Unavailabl e Prior Encounters Date Type Department Care Team Description 10/30/2021 Travel 10/30/2021 10:30 AM THERMAL ENGINEER Office Visit [facility] [address] [place] [id number] Baljinder Pedro, SANDY 12/18/2019 Converted CPS Chart Documents [facility] [address] [place] [address] <No scans attached> 12/18/2019 Converted 13x Documents [facility] [address] [place] [phone] <No scans attached> Plan of Treatment Not on file Procedures Procedure Name Priority Date/Time Associated Diagnosis Comments 31 RECEMENT CROWN Routine 10/30/2021 10: 30 AM THERMAL ENGINEER BITEWINGS - FOUR RADIOGRAPHIC IMAGES Routine 10/30/2021 10:30 AM THERMAL ENGINEER PERIODIC ORAL EVALUATION - ESTABLISHED PATIENT Routine 10/30/2021 10:30 AM THERMAL ENGINEER 30 PFM CROWN Routine 10/30/2021 12:00 AM THERMAL ENGINEER 19 PFM CROWN Routine 10/30/2021 12:00 AM THERMAL ENGINEER 31 PFM CROWN Routine 10/30/2021 12:00 AM THERMAL ENGINEER 18 IMPLANT ZIRCONIA CROWN Routine 2019 2:00 AM THERMAL ENGINEER 14 IMPLANT ZIRCONIA CROWN Routine 2019 2:00 AM THERMAL ENGINEER 13 IMPLANT ZIRCONIA CROWN Routine 2019 2:00 AM THERMAL ENGINEER 18 CUSTOM FABRICATED ABUTMENT INCLUDES PLACEMENT Routine 09/30/2020 2:00 AM THERMAL ENGINEER 14 CUSTOM FABRICATED ABUTMENT INCLUDES PLACEMENT Routine 09/30/2020 2:00 AM THERMAL ENGINEER 13 CUSTOM FABRICATED ABUTMENT INCLUDES PLACEMENT Routine 09/30/2020 2:00 AM THERMAL ENGINEER BITEWINGS - FOUR RADIOGRAPHIC IMAGES Routine 07/05/2020 [...] CIRCUMSTANCES, BY REPORT Routine 01/30/2020 2:00 AM THERMAL ENGINEER NC X-RAY Routine 01/30/2020 2:00 AM THERMAL ENGINEER ADDITIONAL X-RAY Routine 01/30/2020 2:00 AM THERMAL ENGINEER SINGLE X-RAY Routine 01/30/2020 2:00 AM THERMAL ENGINEER 14 GUIDED TISSUE REGENERATION, NATURAL TEETH - RESORBABLE BARRIER, PER SITE Routine 01/05/2020 2:00 AM THERMAL ENGINEER 18 IMPLANT Routine 01/05/2020 2:00 AM THERMAL ENGINEER 14 IMPLANT Routine 01/05/2020 2:00 AM THERMAL ENGINEER 13 IMPLANT Routine 01/05/2020 2:00 AM THERMAL ENGINEER 14 SINUS AUGMENTATION WITH BONE OR BONE SUBSTITUTES VIA A LATERAL OPEN APPROACH Routine 01/05/2020 2:00 AM THERMAL ENGINEER 4 RETAINER CROWN - ZIRCONIA IN OFFICE - POST Routine 01/03/2020 2:00 AM THERMAL ENGINEER 2 RETAINER CROWN - ZIRCONIA IN OFFICE - POST Routine 01/03/2020 2:00 AM THERMAL ENGINEER 3 PONTIC - ZIRCONIA IN OFFICE - POST Routine 01/03/2020 2:00 AM THERMAL ENGINEER 4 CUSTOM FABRICATED ABUTMENT INCLUDES PLACEMENT Routine 01/03/2020 2:00 AM THERMAL ENGINEER 2 CUSTOM FABRICATED ABUTMENT INCLUDES PLACEMENT Routine 01/03/2020 2:00 AM THERMAL ENGINEER TREATMENT OF COMPLICATIONS (POST-SURGICAL) - UNUSUAL CIRCUMSTANCES, BY REPORT Routine 12/15/2019 2:00 AM THERMAL ENGINEER PANORAMIC RADIOGRAPHIC IMAGE Routine 12/15/2019 2:00 AM THERMAL ENGINEER PERIO MAINTENANCE Routine 08/07/2019 2:0 0 AM [...] ORAL HYGIENE INSTRUCTIONS Routine 2018 2:00 AM THERMAL ENGINEER OCCLUSAL GUARD HARD APPLIANCE, FULL ARCH Routine 01/31/2019 2:00 AM THERMAL ENGINEER 18 BONE REPLACEMENT GRAFT FOR RIDGE PRESERVATION - PER SITE Routine 01/31/2019 2:00 AM THERMAL ENGINEER 13 BONE REPLACEMENT GRAFT FOR RIDGE PRESERVATION - PER SITE Routine 01/31/2019 2:00 AM THERMAL ENGINEER 3 BONE REPLACEMENT GRAFT FOR RIDGE PRESERVATION - PER SITE Routine 01/31/2019 2:00 AM THERMAL ENGINEER 2 BONE REPLACEMENT GRAFT FOR RIDGE PRESERVATION - PER SITE Routine 01/31/2019 2:00 AM THERMAL ENGINEER 18 GUIDED TISSUE REGENERATION, NATURAL TEETH - RESORBABLE BARRIER, PER SITE Routine 01/31/2019 2:00 AM THERMAL ENGINEER 13 GUIDED TISSUE REGENERATION, NATURAL TEETH - RESORBABLE BARRIER, PER SITE Routine 01/31/2019 2:00 AM THERMAL ENGINEER 9 GUIDED TISSUE REGENERATION, NATURAL TEETH - RESORBABLE BARRIER, PER SITE Routine 01/31/2019 2:00 AM THERMAL ENGINEER 3 GUIDED TISSUE REGENERATION, NATURAL TEETH - RESORBABLE BARRIER, PER SITE Routine 01/31/2019 2:00 AM THERMAL ENGINEER 2 GUIDED TISSUE REGENERATION, NATURAL TEETH - RESORBABLE BARRIER, PER SITE Routine 01/31/2019 2:00 AM THERMAL ENGINEER 9 BONE REPLACEMENT GRAFT RETAINED NATURAL TOOTH FIRST SITE IN QUADRANT Routine 01/31/2019 2:00 AM THERMAL ENGINEER UR PERIODONTAL SCALING AND ROOT PLANING - FOUR OR MORE TEETH PER QUADRANT Routine 01/31/2019 2:00 AM THERMAL ENGINEER LR PERIODONTAL SCALING AND ROOT PLANING - FOUR OR MORE TEETH PER QUADRANT Routine 01/31/2019 2:00 AM THERMAL ENGINEER LL PERIODONTAL SCALING AND ROOT PLANING - FOUR OR MORE TEETH PER QUADRANT Routine 01/31/2019 2:00 AM THERMAL ENGINEER 14 UL OSSEOUS SURGERY ONE TO THREE CONTIGUOUS TEETH Routine 01/31/2019 2:00 AM THERMAL ENGINEER 18 EXTRACTION, ERUPTED TOOTH REQUIRING REMOVAL OF BONE AND/OR SECTIONING OF TOOTH Routine 01/31/2019 2:00 AM THERMAL ENGINEER 13 EXTRACTION, ERUPTED TOOTH REQUIRING REMOVAL OF BONE AND/OR SECTIONING OF TOOTH Routine 01/31/2019 2:00 AM THERMAL ENGINEER 3 EXTRACTION, ERUPTED TOOTH REQUIRING REMOVAL OF BONE AND/OR SECTIONING OF TOOTH Routine 01/31/2019 2:00 AM THERMAL ENGINEER 2 EXTRACTION, ERUPTED TOOTH REQUIRING REMOVAL OF BONE AND/OR SECTIONING OF TOOTH Routine 01/31/2019 2:00 AM THERMAL ENGINEER PERIO CONSULT Routine 01/17/2019 2:00 AM THERMAL ENGINEER Visit Diagnoses Not on file Insurance
[2025-05-30 11:41] LABS: Hematocrit 48.7 % (42.0-52.0); Hemoglobin 15.9 g/dL (14.0-18.0); Immature Granulocyte Percent A 0.4 % (0-0.5); Lymphocytes Absolute Auto 2.40 K/mm3 (0.9-3.2); Mean Corpuscular HGB Conc 32.6 g/dl (32-36); Mean Corpuscular Hemoglobin 30.7 pg (26-34); Mean Corpuscular Volume 94.0 fl (80-100); Nucleated Red Blood Cells Absolute Auto 0.000 K/mm3 (0.0-0.012); Nucleated Red Blood Cells Perc 0.0 % (0.0-0.2); Platelet Count Result 377 k/mm3 (150-375); Red Blood Count 5.18 M/mm3 (4.6-6.20); White Blood Count 9.8 K/mm3 (4.5-10.0)
[2025-05-30 11:47] LABS: Albumin Level 4.7 g/dL (3.5-5.1)
[2025-05-30 11:50] LABS: Anion Gap 9 mmol/L (4-12); Blood Urea Nitrogen 12 mg/dL (9-20); Calcium 9.9 mg/dL (8.4-10.2); Carbon Dioxide 28 mmol/L (22-30); Chloride 101 mmol/L (98-107); Estimated Glomerular Filt Rate > 60; Glucose 129 mg/dL (65-110); Potassium 4.7 mmol/L (3.4-5.0); Sodium 138 mmol/L (137-145)
[2025-05-30 12:36] LABS: Hemoglobin A1C. 7.1 % (<5.7)
[2025-05-30 12:51] LABS: MRSA (PCR). NOT DETECTED (NOT DETECTE)
== END 2025-05-30 09:51 | disposition home or self-care (01) ==
LOC: ANHSURGERY 09:53
PROVIDERS: Anesthesiology; PCP Internal Medicine; Visit Provider Orthopaedic Surgery
DX: M17.12 Unilateral primary osteoarthritis, left knee (principal); E11.9 Type 2 diabetes mellitus without complications; Z01.818 Encounter for other preprocedural examination
CPT/HCPCS: 36415; 80048; 80307; 82040; 83036; 85025; 87641

== ENCOUNTER 2025-06-12 11:37 | Outpatient (CLI) | payer MEDICARE, SELFPAY ==
--- NOTE | ~2025-06-12 | XR_ITS ---
Left Knee Technique: AP, lateral, and sunrise views were obtained. Clinical History: Arthritis Findings: No fracture or dislocation is seen. There is advanced tricompartmental osteoarthritis.. Sma ll joint effusion is seen. 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 Small joint effusion. Reviewed, dictated and finalized at [facility]. 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 Small joint effusion.
--- OUTSIDE RECORDS SUMMARY | 2025-06-12 11:46 | XMS_ITS | Clinical Summary ---
Author Organization [facility] Address [address] [facility] [place] [address] Care Team Providers Care Chimney Sweeper Name Role Phone Baljinder Asencio MD Primary Care Provider [phone]- [phone] Source Comments [facility],non-owned Affiliates and Associated Physician Practices is amultiple site organization consisting of ambulatory clinics and hospital sitesin [place], [place], [place] and [place]. This disclosure is being madepursuant to the Care Everywhere program and may not contain all information available regarding this patient. Last updated 18.[facility] Immunizations Immunization Administration Dates Next Due INFLUENZA [...] season) 2024 DEPRESSION SCREENING 11/29/2024 INFLUENZA VACCINE (#1) 2025 09/02/2016 Respiratory Syncytial Virus (RSV) Vaccine Pt: or [...] to complete this topic Insurance Care Teams Chimney Sweeper Relationship Specialty Start Date End Date Baljinder Asencio MD [address] [facility] [address] [place], [place] [phone] PCP - General Family Medicine 09/02/16
--- OUTSIDE RECORDS SUMMARY | 2025-06-12 11:46 | XMS_ITS | Clinical Summary ---
Author Organization [facility] Health Address [address] [place] [address] Care Team Providers Care Stitchdown Thread Laster Name Role Phone Unavailable Primary Care Provider [...] - ESTABLISHED PATIENT Routine 10/30/2021 10:30 AM STAFF ANALYST PANORAMIC RADIOGRAPHIC IMAGE Routine 07/04/2020 2:00 AM CDT PERIO MAINTENANCE Routine 08/07/2019 2:0 0 AM CDT LL PERIODONTAL SCALING AND ROOT PLANING - FOUR OR MORE TEETH PER QUADRANT Routine 01/31/2019 2:00 AM STAFF ANALYST from Last 3 Months or Most Recently Relevant to Health Maintenance Insurance PPO
--- OUTSIDE RECORDS SUMMARY | 2025-06-12 11:46 | XMS_ITS | Encounter Summary ---
Author Organization [facility] Health Address [address] [place] [address] Care Team Providers Care Seafood Packer Name Role Phone Unavailable Primary Care Provider Unavailabl e Prior Encounters Date Type Department Care Team Description 10/30/2021 Travel 10/30/2021 10:30 AM ART CONSULTANT Office Visit [facility] [address] [place] [id number] Baljinder Pedro, SANDY 12/18/2019 Converted CPS Chart Documents [facility] [address] [place] [address] <No scans attached> 12/18/2019 Converted 13x Documents [facility] [address] [place] [address] <No scans attached> Plan of Treatment Not on file Procedures Procedure Name Priority Date/Time Associated Diagnosis Comments 31 RECEMENT CROWN Routine 10/30/2021 10: 30 AM ART CONSULTANT BITEWINGS - FOUR RADIOGRAPHIC IMAGES Routine 10/30/2021 10:30 AM ART CONSULTANT PERIODIC ORAL EVALUATION - ESTABLISHED PATIENT Routine 10/30/2021 10:30 AM ART CONSULTANT 30 PFM CROWN Routine 10/30/2021 12:00 AM ART CONSULTANT 19 PFM CROWN Routine 10/30/2021 12:00 AM ART CONSULTANT 31 PFM CROWN Routine 10/30/2021 12:00 AM ART CONSULTANT 18 IMPLANT ZIRCONIA CROWN Routine 2019 2:00 AM ART CONSULTANT 14 IMPLANT ZIRCONIA CROWN Routine 2019 2:00 AM ART CONSULTANT 13 IMPLANT ZIRCONIA CROWN Routine 2019 2:00 AM ART CONSULTANT 18 CUSTOM FABRICATED ABUTMENT INCLUDES PLACEMENT Routine 09/30/2020 2:00 AM ART CONSULTANT 14 CUSTOM FABRICATED ABUTMENT INCLUDES PLACEMENT Routine 09/30/2020 2:00 AM ART CONSULTANT 13 CUSTOM FABRICATED ABUTMENT INCLUDES PLACEMENT Routine 09/30/2020 2:00 AM ART CONSULTANT BITEWINGS - FOUR RADIOGRAPHIC IMAGES Routine 07/05/2020 [...] CIRCUMSTANCES, BY REPORT Routine 01/30/2020 2:00 AM ART CONSULTANT NC X-RAY Routine 01/30/2020 2:00 AM ART CONSULTANT ADDITIONAL X-RAY Routine 01/30/2020 2:00 AM ART CONSULTANT SINGLE X-RAY Routine 01/30/2020 2:00 AM ART CONSULTANT 14 GUIDED TISSUE REGENERATION, NATURAL TEETH - RESORBABLE BARRIER, PER SITE Routine 01/05/2020 2:00 AM ART CONSULTANT 18 IMPLANT Routine 01/05/2020 2:00 AM ART CONSULTANT 14 IMPLANT Routine 01/05/2020 2:00 AM ART CONSULTANT 13 IMPLANT Routine 01/05/2020 2:00 AM ART CONSULTANT 14 SINUS AUGMENTATION WITH BONE OR BONE SUBSTITUTES VIA A LATERAL OPEN APPROACH Routine 01/05/2020 2:00 AM ART CONSULTANT 4 RETAINER CROWN - ZIRCONIA IN OFFICE - POST Routine 01/03/2020 2:00 AM ART CONSULTANT 2 RETAINER CROWN - ZIRCONIA IN OFFICE - POST Routine 01/03/2020 2:00 AM ART CONSULTANT 3 PONTIC - ZIRCONIA IN OFFICE - POST Routine 01/03/2020 2:00 AM ART CONSULTANT 4 CUSTOM FABRICATED ABUTMENT INCLUDES PLACEMENT Routine 01/03/2020 2:00 AM ART CONSULTANT 2 CUSTOM FABRICATED ABUTMENT INCLUDES PLACEMENT Routine 01/03/2020 2:00 AM ART CONSULTANT TREATMENT OF COMPLICATIONS (POST-SURGICAL) - UNUSUAL CIRCUMSTANCES, BY REPORT Routine 12/15/2019 2:00 AM ART CONSULTANT PANORAMIC RADIOGRAPHIC IMAGE Routine 12/15/2019 2:00 AM ART CONSULTANT PERIO MAINTENANCE Routine 08/07/2019 2:0 0 AM [...] ORAL HYGIENE INSTRUCTIONS Routine 2018 2:00 AM ART CONSULTANT OCCLUSAL GUARD HARD APPLIANCE, FULL ARCH Routine 01/31/2019 2:00 AM ART CONSULTANT 18 BONE REPLACEMENT GRAFT FOR RIDGE PRESERVATION - PER SITE Routine 01/31/2019 2:00 AM ART CONSULTANT 13 BONE REPLACEMENT GRAFT FOR RIDGE PRESERVATION - PER SITE Routine 01/31/2019 2:00 AM ART CONSULTANT 3 BONE REPLACEMENT GRAFT FOR RIDGE PRESERVATION - PER SITE Routine 01/31/2019 2:00 AM ART CONSULTANT 2 BONE REPLACEMENT GRAFT FOR RIDGE PRESERVATION - PER SITE Routine 01/31/2019 2:00 AM ART CONSULTANT 18 GUIDED TISSUE REGENERATION, NATURAL TEETH - RESORBABLE BARRIER, PER SITE Routine 01/31/2019 2:00 AM ART CONSULTANT 13 GUIDED TISSUE REGENERATION, NATURAL TEETH - RESORBABLE BARRIER, PER SITE Routine 01/31/2019 2:00 AM ART CONSULTANT 9 GUIDED TISSUE REGENERATION, NATURAL TEETH - RESORBABLE BARRIER, PER SITE Routine 01/31/2019 2:00 AM ART CONSULTANT 3 GUIDED TISSUE REGENERATION, NATURAL TEETH - RESORBABLE BARRIER, PER SITE Routine 01/31/2019 2:00 AM ART CONSULTANT 2 GUIDED TISSUE REGENERATION, NATURAL TEETH - RESORBABLE BARRIER, PER SITE Routine 01/31/2019 2:00 AM ART CONSULTANT 9 BONE REPLACEMENT GRAFT RETAINED NATURAL TOOTH FIRST SITE IN QUADRANT Routine 01/31/2019 2:00 AM ART CONSULTANT UR PERIODONTAL SCALING AND ROOT PLANING - FOUR OR MORE TEETH PER QUADRANT Routine 01/31/2019 2:00 AM ART CONSULTANT LR PERIODONTAL SCALING AND ROOT PLANING - FOUR OR MORE TEETH PER QUADRANT Routine 01/31/2019 2:00 AM ART CONSULTANT LL PERIODONTAL SCALING AND ROOT PLANING - FOUR OR MORE TEETH PER QUADRANT Routine 01/31/2019 2:00 AM ART CONSULTANT 14 UL OSSEOUS SURGERY ONE TO THREE CONTIGUOUS TEETH Routine 01/31/2019 2:00 AM ART CONSULTANT 18 EXTRACTION, ERUPTED TOOTH REQUIRING REMOVAL OF BONE AND/OR SECTIONING OF TOOTH Routine 01/31/2019 2:00 AM ART CONSULTANT 13 EXTRACTION, ERUPTED TOOTH REQUIRING REMOVAL OF BONE AND/OR SECTIONING OF TOOTH Routine 01/31/2019 2:00 AM ART CONSULTANT 3 EXTRACTION, ERUPTED TOOTH REQUIRING REMOVAL OF BONE AND/OR SECTIONING OF TOOTH Routine 01/31/2019 2:00 AM ART CONSULTANT 2 EXTRACTION, ERUPTED TOOTH REQUIRING REMOVAL OF BONE AND/OR SECTIONING OF TOOTH Routine 01/31/2019 2:00 AM ART CONSULTANT PERIO CONSULT Routine 01/17/2019 2:00 AM ART CONSULTANT Visit Diagnoses Not on file Insurance
== END 2025-06-12 11:38 | disposition home or self-care (01) ==
PROVIDERS: PCP Internal Medicine; Visit Provider Orthopaedic Surgery
DX: M17.12 Unilateral primary osteoarthritis, left knee (principal); M25.462 Effusion, left knee
CPT/HCPCS: 73564

== ENCOUNTER 2025-06-21 00:53 | Day surgery (SDC) | payer MEDICARE, SELFPAY ==
[2025-05-30 10:13] VITALS: BP 149/70; PULSE 65; RESP 16; TEMP 36.6; O2SAT 100; BMI 27.1
--- NOTE | 2025-05-30 10:33 | PC.NURSE ---
Report to the Outpatient Waiting Room, entrance under the green pavilion located off [facility], at time ___8:30AM____ on date ____06/21/25___. Planned Procedure Time: ___10:30AM____.? Time changes happen often and if your time is changed the preop area will call you the afternoon before. - You and your visitor will be asked to self-screen and do not enter if you have any COVID symptoms. Please call surgeon if you need to reschedule. - A mask is optional within the hospital at this time. Patients may have clear liquids (water, carbonated beverages, clear teas, apple juice) until 3 hours prior to surgery (7:30AM) with a maximum of 20 ounces. - No food from midnight until time of surgery and no smoking, or chewing tobacco (or any form of nicotine). No chewing gum, candy or mints. Take only the following medications with a SIP of water on the morning of surgery: ____NONE DO NOT STOP ANY OF YOUR OTHER PRESCRIPTION MEDICATIONS PRIOR TO SURGERY EXCEPT THE FOLLOWING Medications to discontinue per physician ___HOLD ASPIRIN, MELOXICAM (ALL NSAIDS) AND VITAMINS/SUPPLEMENTS 7 DAYS PRE-OP PER DR SCOTT Date to take last dose 06/13/25 Please no make-up, nail upper sorbian, hairspray, perfume, deodorant, or body powder the day of surgery.? No jewelry (including any body piercings) or valuables the day of surgery, leave them at home.? Please take a shower or bath the night before, or the morning of, surgery with an antibacterial soap.? Wear comfortable, loose fitting clothing.? - Jewelry must be removed prior to entering the operating room.? Rings and piercings that are not removed may be cut off. - The hospital will not accept responsibility for valuables.? - Please leave all valuables, including medications, at home the day of surgery. If you are going home after surgery, a licensed nascar driver must drive you home.? - NO public transportation without another adult if you receive anesthesia. - We recommend that an adult stay with you for 24 hours following discharge. - We also recommend that you do not drive, make important decision, drink alcoholic beverages, or take any drugs that were not prescribed by your health care provider for at least 24 hours after your discharge time. Follow any additional instructions given to you from your surgeon. Telephone instructions given to ____PATIENT & WIFE and asked if any additional questions and then verbalized understanding. Patient advised to call surgeon office or pre surgery nurse liaison [phone] if any additional questions.
[2025-06-21] VITALS (12 sets, daily range): BP systolic 126–162; BP diastolic 62–79; PULSE 70–79; RESP 8–20; TEMP 35.6–37.1; O2SAT 93–100; BMI 26.9
--- NOTE | ~2025-06-21 | XR_ITS ---
EXAMINATION: [id number] DATE: 06/21/2025 13:16 CDT INDICATION: Left total knee arthroplasty TECHNIQUE: 2 views left knee FINDINGS: There is a left total knee arthroplasty in expected position. Subcutaneous gas with fluid and air in the joint are consistent with recent surgery. No evidence of periprosthetic fracture. IMPRESSION: 1. Recent left total knee arthroplasty. Reviewed, dictated and finalized at location A.
--- OUTSIDE RECORDS SUMMARY | 2025-06-21 00:55 | XMS_ITS | Clinical Summary ---
Author Organization [facility] Address [address] [facility] [place] [address] Care Team Providers Care Outside Sales Advertising Executive Name Role Phone Baljinder Asencio MD Primary Care Provider [phone]- [phone] Source Comments [facility],non-owned Affiliates and Associated Physician Practices is amultiple site organization consisting of ambulatory clinics and hospital sitesin [place], [place], [place] and [place]. This disclosure is being madepursuant to the Care Everywhere program and may not contain all information available regarding this patient. Last updated 18.[facility] Immunizations Immunization Administration Dates Next Due [...] to complete this topic Insurance Care Teams Outside Sales Advertising Executive Relationship Specialty Start Date End Date Baljinder Asencio MD [address] [facility] [address] [place], [place] [phone] PCP - General Family Medicine 09/02/16
--- OUTSIDE RECORDS SUMMARY | 2025-06-21 00:55 | XMS_ITS | Encounter Summary ---
Author Organization [facility] Health Address [address] [place] [address] Care Team Providers Care Counter Stitcher Name Role Phone Unavailable Primary Care Provider Unavailabl e Prior Encounters Date Type Department Care Team Description 10/30/2021 Travel 10/30/2021 10:30 AM PHARMACOGNOSY TEACHER Office Visit [facility] [address] [place] [id number] Baljinder Pedro, SANDY 12/18/2019 Converted CPS Chart Documents [facility] [address] [place] [id number] <No scans attached> 12/18/2019 Converted 13x Documents [facility] [address] [place] [id number] <No scans attached> Plan of Treatment Not on file Procedures Procedure Name Priority Date/Time Associated Diagnosis Comments 31 RECEMENT CROWN Routine 10/30/2021 10: 30 AM PHARMACOGNOSY TEACHER BITEWINGS - FOUR RADIOGRAPHIC IMAGES Routine 10/30/2021 10:30 AM PHARMACOGNOSY TEACHER PERIODIC ORAL EVALUATION - ESTABLISHED PATIENT Routine 10/30/2021 10:30 AM PHARMACOGNOSY TEACHER 30 PFM CROWN Routine 10/30/2021 12:00 AM PHARMACOGNOSY TEACHER 19 PFM CROWN Routine 10/30/2021 12:00 AM PHARMACOGNOSY TEACHER 31 PFM CROWN Routine 10/30/2021 12:00 AM PHARMACOGNOSY TEACHER 18 IMPLANT ZIRCONIA CROWN Routine 2019 2:00 AM PHARMACOGNOSY TEACHER 14 IMPLANT ZIRCONIA CROWN Routine 2019 2:00 AM PHARMACOGNOSY TEACHER 13 IMPLANT ZIRCONIA CROWN Routine 2019 2:00 AM PHARMACOGNOSY TEACHER 18 CUSTOM FABRICATED ABUTMENT INCLUDES PLACEMENT Routine 09/30/2020 2:00 AM PHARMACOGNOSY TEACHER 14 CUSTOM FABRICATED ABUTMENT INCLUDES PLACEMENT Routine 09/30/2020 2:00 AM PHARMACOGNOSY TEACHER 13 CUSTOM FABRICATED ABUTMENT INCLUDES PLACEMENT Routine 09/30/2020 2:00 AM PHARMACOGNOSY TEACHER BITEWINGS - FOUR RADIOGRAPHIC IMAGES Routine 07/05/2020 [...] CIRCUMSTANCES, BY REPORT Routine 01/30/2020 2:00 AM PHARMACOGNOSY TEACHER NC X-RAY Routine 01/30/2020 2:00 AM PHARMACOGNOSY TEACHER ADDITIONAL X-RAY Routine 01/30/2020 2:00 AM PHARMACOGNOSY TEACHER SINGLE X-RAY Routine 01/30/2020 2:00 AM PHARMACOGNOSY TEACHER 14 GUIDED TISSUE REGENERATION, NATURAL TEETH - RESORBABLE BARRIER, PER SITE Routine 01/05/2020 2:00 AM PHARMACOGNOSY TEACHER 18 IMPLANT Routine 01/05/2020 2:00 AM PHARMACOGNOSY TEACHER 14 IMPLANT Routine 01/05/2020 2:00 AM PHARMACOGNOSY TEACHER 13 IMPLANT Routine 01/05/2020 2:00 AM PHARMACOGNOSY TEACHER 14 SINUS AUGMENTATION WITH BONE OR BONE SUBSTITUTES VIA A LATERAL OPEN APPROACH Routine 01/05/2020 2:00 AM PHARMACOGNOSY TEACHER 4 RETAINER CROWN - ZIRCONIA IN OFFICE - POST Routine 01/03/2020 2:00 AM PHARMACOGNOSY TEACHER 2 RETAINER CROWN - ZIRCONIA IN OFFICE - POST Routine 01/03/2020 2:00 AM PHARMACOGNOSY TEACHER 3 PONTIC - ZIRCONIA IN OFFICE - POST Routine 01/03/2020 2:00 AM PHARMACOGNOSY TEACHER 4 CUSTOM FABRICATED ABUTMENT INCLUDES PLACEMENT Routine 01/03/2020 2:00 AM PHARMACOGNOSY TEACHER 2 CUSTOM FABRICATED ABUTMENT INCLUDES PLACEMENT Routine 01/03/2020 2:00 AM PHARMACOGNOSY TEACHER TREATMENT OF COMPLICATIONS (POST-SURGICAL) - UNUSUAL CIRCUMSTANCES, BY REPORT Routine 12/15/2019 2:00 AM PHARMACOGNOSY TEACHER PANORAMIC RADIOGRAPHIC IMAGE Routine 12/15/2019 2:00 AM PHARMACOGNOSY TEACHER PERIO MAINTENANCE Routine 08/07/2019 2:0 0 AM [...] ORAL HYGIENE INSTRUCTIONS Routine 2018 2:00 AM PHARMACOGNOSY TEACHER OCCLUSAL GUARD HARD APPLIANCE, FULL ARCH Routine 01/31/2019 2:00 AM PHARMACOGNOSY TEACHER 18 BONE REPLACEMENT GRAFT FOR RIDGE PRESERVATION - PER SITE Routine 01/31/2019 2:00 AM PHARMACOGNOSY TEACHER 13 BONE REPLACEMENT GRAFT FOR RIDGE PRESERVATION - PER SITE Routine 01/31/2019 2:00 AM PHARMACOGNOSY TEACHER 3 BONE REPLACEMENT GRAFT FOR RIDGE PRESERVATION - PER SITE Routine 01/31/2019 2:00 AM PHARMACOGNOSY TEACHER 2 BONE REPLACEMENT GRAFT FOR RIDGE PRESERVATION - PER SITE Routine 01/31/2019 2:00 AM PHARMACOGNOSY TEACHER 18 GUIDED TISSUE REGENERATION, NATURAL TEETH - RESORBABLE BARRIER, PER SITE Routine 01/31/2019 2:00 AM PHARMACOGNOSY TEACHER 13 GUIDED TISSUE REGENERATION, NATURAL TEETH - RESORBABLE BARRIER, PER SITE Routine 01/31/2019 2:00 AM PHARMACOGNOSY TEACHER 9 GUIDED TISSUE REGENERATION, NATURAL TEETH - RESORBABLE BARRIER, PER SITE Routine 01/31/2019 2:00 AM PHARMACOGNOSY TEACHER 3 GUIDED TISSUE REGENERATION, NATURAL TEETH - RESORBABLE BARRIER, PER SITE Routine 01/31/2019 2:00 AM PHARMACOGNOSY TEACHER 2 GUIDED TISSUE REGENERATION, NATURAL TEETH - RESORBABLE BARRIER, PER SITE Routine 01/31/2019 2:00 AM PHARMACOGNOSY TEACHER 9 BONE REPLACEMENT GRAFT RETAINED NATURAL TOOTH FIRST SITE IN QUADRANT Routine 01/31/2019 2:00 AM PHARMACOGNOSY TEACHER UR PERIODONTAL SCALING AND ROOT PLANING - FOUR OR MORE TEETH PER QUADRANT Routine 01/31/2019 2:00 AM PHARMACOGNOSY TEACHER LR PERIODONTAL SCALING AND ROOT PLANING - FOUR OR MORE TEETH PER QUADRANT Routine 01/31/2019 2:00 AM PHARMACOGNOSY TEACHER LL PERIODONTAL SCALING AND ROOT PLANING - FOUR OR MORE TEETH PER QUADRANT Routine 01/31/2019 2:00 AM PHARMACOGNOSY TEACHER 14 UL OSSEOUS SURGERY ONE TO THREE CONTIGUOUS TEETH Routine 01/31/2019 2:00 AM PHARMACOGNOSY TEACHER 18 EXTRACTION, ERUPTED TOOTH REQUIRING REMOVAL OF BONE AND/OR SECTIONING OF TOOTH Routine 01/31/2019 2:00 AM PHARMACOGNOSY TEACHER 13 EXTRACTION, ERUPTED TOOTH REQUIRING REMOVAL OF BONE AND/OR SECTIONING OF TOOTH Routine 01/31/2019 2:00 AM PHARMACOGNOSY TEACHER 3 EXTRACTION, ERUPTED TOOTH REQUIRING REMOVAL OF BONE AND/OR SECTIONING OF TOOTH Routine 01/31/2019 2:00 AM PHARMACOGNOSY TEACHER 2 EXTRACTION, ERUPTED TOOTH REQUIRING REMOVAL OF BONE AND/OR SECTIONING OF TOOTH Routine 01/31/2019 2:00 AM PHARMACOGNOSY TEACHER PERIO CONSULT Routine 01/17/2019 2:00 AM PHARMACOGNOSY TEACHER Visit Diagnoses Not on file Insurance
--- OUTSIDE RECORDS SUMMARY | 2025-06-21 00:55 | XMS_ITS | Clinical Summary ---
Author Organization [facility] Health Address [address] [place] [address] Care Team Providers Care Ear Flap Binder Name Role Phone Unavailable Primary Care Provider [...] - ESTABLISHED PATIENT Routine 10/30/2021 10:30 AM FLOOR WINDER PANORAMIC RADIOGRAPHIC IMAGE Routine 07/04/2020 2:00 AM CDT PERIO MAINTENANCE Routine 08/07/2019 2:0 0 AM CDT LL PERIODONTAL SCALING AND ROOT PLANING - FOUR OR MORE TEETH PER QUADRANT Routine 01/31/2019 2:00 AM FLOOR WINDER from Last 3 Months or Most Recently Relevant to Health Maintenance Insurance PPO
[2025-06-21] MEDS: LACTATED RINGERS 1,000 ML 30 ML IV CONT ×2 (08:36→12:47)
[2025-06-21] MEDS: ACETAMINOPHEN 500 MG TABLET 1000 MG PO (08:37)
[2025-06-21] MEDS: TRANEXAMIC ACID 1,000MG/ISO100 1,000 MG/100 ML BAG 200 MG IVPB (08:37)
--- NOTE | 2025-06-21 10:06 | P.PNAN_ITS ---
Anes - Initial Pre Proc Eval Procedure: Operation Date: 06/21/25 10:00 Proposed Procedures p Left Total Knee Arthroplasty - Dion Pearson MD Date/Time: 06/21/25 10:06 Surgeon: Dion Pearson MD Pre Op Diagnosis: Prim O A Lt knee Patient Data Age: 74 Gender: M Height: 1.73 m Weight: 80.2 kg Last Vital Signs Temp 98.3 F 06/21/25 08:00 Pulse 78 06/21/25 08:00 Resp 18 06/21/25 08:00 BP 162/79 H 06/21/25 08:00 Pulse Ox 100 06/21/25 08:00 O2 Del Method Room Air 06/21/25 08:00 Allergies Allergy/AdvReac Type Severity Reaction Status Date / Time No Known Allergies Allergy Verified 06/21/25 08:15 Home Medications ?Medication ?Instructions ?Recorded ?Confirmed ?Type aspirin 81 mg tablet,delayed 81 mg PO DAILY 10/20/21 06/21/25 History release (Adult Low Dose Aspirin) blood sugar diagnostic See Rx Instructions .Route 05/20/23 06/13/25 Rx .COMPLEX #100 strips blood-glucose meter (OneTouch #1 ea 12/14/23 06/13/25 Rx Ultra2 Meter) blood sugar diagnostic (OneTouch #100 ea 02/24/24 06/13/25 Rx Ultra Test strips) lancets 33 gauge #100 ea 02/24/24 06/13/25 Rx lancets 33 gauge #100 ea 04/17/25 06/13/25 Rx ascorbic acid (vitamin C) 250 mg 250 mg PO DAILY 05/30/25 06/21/25 History tablet cholecalciferol (vitamin D3) 50 50 mcg PO DAILY 05/30/25 06/21/25 History mcg (2,000 unit) capsule lisinopril 2.5 mg tablet 2.5 mg PO HS 05/30/25 06/21/25 History meloxicam 15 mg tablet 7.5 mg PO BID PRN pain 05/30/25 06/21/25 History metformin 500 mg tablet 500 mg PO BID 05/30/25 06/21/25 History omega 5-nli-vrm-fish oil 1,200 mg 1 cap PO DAILY 05/30/25 06/21/25 History (144 mg-216 mg) capsule (Fish Oil) simvastatin 40 mg tablet 40 mg PO DAILY 05/30/25 06/21/25 History Laboratory Tests 06/21/25 06/21/25 08:32 08:35 POC Capillary Glucose 137 H mg/dl (65-105) Blood Type A Positive Antibody Screen Negative Patient hx anesthesia problems: none Family hx anesthesia problems: none Results Review: All pre-operative results and documents have been reviewed as part of the pre- operative evaluation. PMF Family History Family History Mother Family history of cardiovascular disease Father Patient's father is in good health Sibling Patient's brother is in good health Social History Social History Smoking status: Never smoker Second hand tobacco smoke exposure: No Alcohol intake: former Drinks per week: 2 Alcohol use details: once in a while Substance use: never Substance use type: does not use Lack of Transportation: No Lack of Food: Never True Current Housing: I Have Housing Concerned About Future Housing: No Difficulty Paying Gas/Electric Bills: No Difficulty Paying for Meds: No Currently Unemployed: No Education: Associate Degree Difficulty w/ Childcare or Family Care: No Living arrangements: with family Additional living arrangements comments: Spiritual care concerns: No Anes - Eval Final PreProcedure Day of Procedure 06/21/25 10:06 Patient weight: normal Lungs: normal air movement Airway: Mallampati scale class II Neurological: alert and oriented Last oral intake: >/= 8 hours ASA classification: III Emergent: no Anesthetic plan: proceed Anesthesia type and monitoring: general and standard monitoring Results Review: All pre-operative results and documents have been reviewed as part of the pre- operative evaluation. HTN, hyperlipidemia, DM fsbs 137. Informed Consent: The patient's anesthetic plan and its attendant risks and benefits were discussed with the patient/family/POA. Questions were solicited and answers provided to the satisfaction of the patient/family/POA.
--- NOTE | 2025-06-21 10:07 | WPDHPUPDATE1 ---
History and Physical Update Update Date/Time: 06/21/25 10:07 History and Physical has been reviewed, including an updated exam of the patient. There are NO changes in the patient's condition. Risks, benefits, and alternatives have been discussed and questions answered. Patient agrees to proceed with procedure.
[2025-06-21] MEDS: SODIUM CHLORIDE 0.9% IV 37.7 ML, MORPHINE SULFATE INJ (*CRX) 2 MG, ROPivacaine HCL 1% 2... INFILTRATE (10:46)
[2025-06-21] MEDS: ceFAZolin 2 GM in SODIUM CHLORIDE 0.9% IV 50 ML 100 ML IVPB (10:46)
[2025-06-21] MEDS: GENTAMICIN BONE CEMENT REFOBACIN 1 EACH TOPICAL (12:02)
--- NOTE | 2025-06-21 13:32 | P.OP_ITS ---
Procedure Note - Detailed Date of Procedure 06/21/25 Pre-op Diagnosis Left knee degenerative arthritis. Post-op Diagnosis Same Procedure Performed Calipered, kinematically aligned total knee replacement left knee. Surgeon Dion Pearson MD Anesthesia General Indications Severe varus disease with varus thrust. Moderate medial tibia bone loss, mild medial femoral bone erosion. Findings According to the calipered kinematic alignment principles, the knee was balanced by the following verification checks incorporating 6 caliper measurements, using an insert goniometer to select the insert thickness, and adjusting the tibial resection following the kinematic alignment algorithm (see figure 160.10 published in [employer] chapter on kinematic alignment total knee arthroplasty.) The steps verified the femoral and tibial components were kinematically aligned coincident to the patient's pre arthritic joint lines, which closely restored the [place] tibial compartment forces and ligament laxities without ligament release. The [employer] SperiKA knee, designed specifically for kinematic alignment, fit optimally. A 1.5 mm suri placed medially on the femur at the region of maximum erosion to account for bone loss when measuring the distal resection. Notable medial tibia erosion preoperatively. The record of verification checks were documented and scanned into the chart. Distal Femoral Resection: Distal Medial 4.5 mm(cartilage worn), Distal Lateral 8 mm Target thickness of 8mm Unworn, 4.5 mm (6 - 1.5 mm to account for additional bone wear) Worn (No Cartilage). Posterior Femoral Resection: Posterior Medial 5 mm(cartilage worn), Posterior Lateral 7 mm. Target thickness of 7mm Unworn, 5mm Worn (No Cartilage). Description of Procedure General anesthesia was administered. A well-padded tourniquet was placed high on the thigh. The limb was prepped and draped in the usual sterile fashion. The limb was exsanguinated and the tourniquet inflated to 300 mmHg. A longitudinal incision was created over the midline of the knee. Sharp dissection was taken through subcutaneous tissues. Electrocautery was used for hemostasis. A [trivector] approach to the knee joint was performed. The ACL, anterior horns of the menisci, and fat pad were excised, and a subperiosteal dissection was carried along the posterior medial border of the tibia. Starting midway between the top of the notch in the anterior femoral cortex, I drilled a 9 mm diameter hole parallel to the anterior cortex to minimize flexion of the femoral component and promote patella tracking. I verified the existence of a 5-10 mm bone bridge between the posterior aspect of the hole and the anterior limit of the intercondylar notch. An intraosseous positioning samm was inserted 10 cm into the femur perpendicular to the distal joint line and parallel to the anterior cortex. I used a distal femoral referencing guide that compensated 2 mm when the cartilage was worn on the distal medial femoral condyle, and 2 mm when the cartilage was worn on the distal lateral femoral condyle. The basis for setting the distal and posterior femoral resection guide is knowing that the varus and valgus grade II to IV Kellegren-Rex osteoarthritic knees have negligible bone wear at 0? and 90? and that the mean full-thickness cartilage wear approximates 2 mm. However in this case there appeared to be approximately 1.5 mm rows of wear from the central aspect. A 1.5 mm Suri was just placed in this area. I measured the thickness of distal femoral resections with a caliper to +/- 0.5 mm. The thickness of each resection was adjusted to match the thickness of the respective condyle of the femoral component within 0.5 mm of target after compensating for cartilage wear, 1.5 additional bone wear, and kerf. When the distal resection was 1-2 mm too thin, a recut guide was used to adjust the cut. When the distal resection was too thick, a 1 or 2 mm thick washer was fixed to the back of the 4-in-1 chamfer block to suri a corrective gap between the femoral component and distal femur. I set posterior femoral referencing guide at 0? orientation to position the pin holes for the 4 in 1 chamfer block. The priya wing measured the width of the distal femoral resection and selected the size of the 4 in 1 chamfer block and femoral component. The AP sizer confirmed the size. I measured the thickness of the posterior femoral resections with a caliper before making the anterior and chamfer cuts. I adjusted the thicknesses of each resection to match the thickness of the respective condyle of the femoral component within +/-0.5 mm after compensating for cartilage wear and curve. When a posterior resection femoral resection was 1-2 mm too thick or thin a corrective correction was made by shifting or rotating the 4 in 1 chamfer block as needed. The chamfer block was secured in the correct position with compression screws. The anterior and chamfer femoral resections were made. These caliper measurements and correc tions verified that the femoral component was set coincident with the patient's pre-arthritic distal and posterior femoral joint lines. I removed all the medial and lateral femoral and tibial osteophytes to restore the pre arthritic length of the medial and lateral collateral ligaments. I beau AP lines along the major axis of the lateral tibial plateau in between the tibial spines which identified the flexion extension plane of the knee. A conventional extramedullary tibial resection guide was applied to the ankle. An priya wing was placed medially in the saw slot. The varus valgus angle of the tibial resection guide was adjusted until the guide paralleled the proximal tibial articular surface after compensating for cartilage and bone wear. The slope of flexion extension angle of the tibial resection guide was adjusted until the priya wing paralleled the slope of the medial tibia after compensating for wear. The AP axis of the tibial resection guide was adjusted parallel to the two lines. The proximal tibia was resected, partially releasing the insertion of the posterior cruciate ligament. The thickness of the medial and lateral lateral tibial condyle was measured at the base of the tibial spines. I visually verified the slope of the medial border of the resection was parallel to the patient's pre arthritic slope after compensating for cartilage and bone wear. I removed the remnants of the posterior horns of the menisci and posterior osteophytes and cauterized the inferior lateral genicular vessels. The Aquamantys bipolar device was also used to for additional hemostasis. When the knee had a preoperative flexion contracture of 20? or more I teased the capsule off the posterior femur with a curved 3 quarter-inch osteotome. I administered the posterior femoral periosteal injection by delivering 10 cc using a 20 gauge spinal needle at the most medial and 10 cc at the most lateral femoral spur surface which reduced the risk of injury to the posterior neurovascular structures. I followed 6 options in a decision tree to fine tune the varus valgus and posterior slope orientation of the tibial component to restore the patient's pre arthritic tibial joint line and limb alignment. First, I adjusted the varus- valgus orientation of the proximal tibia resection working in 1 degree to 2 degree increments until there was negligible medial and lateral lift off of the distal femoral and proximal tibial resection from the spacer block during a varus valgus laxity assessment in extension. I selected the largest anatomic shape trial tibial base plate that fit within the cortical boundary of the proximal tibial resection. The base plate was best fit parallel to the cortical boundary which set the Internal-external orientation of the anterior to posterior and medial to lateral positions. The best fit method set the AP axis of the tibial base plate and insert parallel to the flexion extension plane of the pre arthritic knee. I pinned the trial tib ial base plate, prepared the cruciate slot, and fixed the base plate to the tibia with the cruciate stem. I inserted the trial femoral component. The knee was placed in full extension. Varus valgus laxity is of the knee with trial components were assessed. When asymmetric laxity was observed a 1-2 degree varus or valgus recut guide was used to fine tune the tibial resection until the laxity was 1 degree or less in full extension like the [place] knee. The following steps determined the optimal insert thickness within +/-1 mm. First I inserted an insert goniometer that matched the thickness of the spacer block. I reduced the patella and then with the knee in maximum extension, I verified the knee hyperextended a few degrees and had negligible varus valgus laxity, like the pre arthritic knee. Next, I measured the external tibial orientation which was the angle the insert goniometer intersected the sagittal line on the medial condyle of the femoral trial component. Then with the knee in 15-30 degrees flexion I verified a 3-4 mm gap in the lateral compartment and no gap in the medial compartment during a 2nd varus valgus laxity test. Next, I placed the knee in 90? of flexion and the foot resting on the operating table and measured the internal tibial orientation. I repeated the steps until I identified the insert thickness that provided the highest external tibia orientation in extension and the highest internal tibial orientation at 90? flexion without anterior lift-off of the insert from the tibial base plate. The insert with this thickness was implanted. I applied a posterior drawer test with the tibia distracted by gravity and verified no posterior subluxation of the tibia relative to the femur. The thickness of the [place] patella was measured with a caliper. The lateral patellar facet was resected using the oscillating saw. The patella remained centered on the trochlea and tracked well throughout the entire arc of flexion and extension. I used pulse lavage to clean the bony surfaces of debris and dried bone. I cemented the tibial, femoral, and patellar components using 1 bag of methylmethacrylate with Gentamycin, then rechecked the stability at full extension, 15-30 degrees, and 90? flexion and verified bahai of the entire arc of motion of the knee. The circulating nurse confirmed the sponge and needle counts were correct. I used pulse lavage to rinse the joint and wound. The extensor mechanism was closed with interrupted #1 Vicryl suture and #1 running Stratafix suture. The subcutaneous layer was closed with interrupted #1 Vicryl suture followed by 2-0 Stratafix and 3-0 Stratafix. Steri-Strips placed on the skin. Silver impregnated occlusive dressing applied to the wound. A light gauze wrap and Horace bandage were placed. The patient was transferred to the recovery room in stable condition. There were no complications. Implants Medacta GMK spheriKA Femoral component SpheriKA size 4, tibial component size 4, vitamin-E flex insert, thickness 11mm. Estimated Blood Loss 20 Drains No Pathology None sent Complications No immediate complications Condition Stable Disposition PACU [facility] Billing Surgery - Charge Forward: Surgery Billing
[2025-06-21] MEDS: oxyCODONE/ACETAMINOPHEN (*CRX) 10-325 MG TABLET 1 TAB PO (15:04)
[2025-06-21] MEDS: SODIUM CHLORIDE 0.9% IV 1,000 ML 125 ML IV CONT (15:05)
[2025-06-21] MEDS: ONDANSETRON INJ 4 MG/2 ML VIAL IV PUSH (15:05)
[2025-06-21] MEDS: SENNA/DOCUSATE SODIUM TABLET 2 TAB PO (17:51)
[2025-06-21] MEDS: ceFAZolin 2 GM/D5W 50 ML 2 GM/50 ML BAG IVPB (19:52)
[2025-06-21] MEDS: oxyCODONE/ACETAMINOPHEN (*CRX) 5-325 MG TABLET 1 TABLET PO (19:53)
[2025-06-22] MEDS: oxyCODONE/ACETAMINOPHEN (*CRX) 5-325 MG TABLET 1 TABLET PO ×2 (02:21→10:07)
[2025-06-22] MEDS: ceFAZolin 2 GM/D5W 50 ML 2 GM/50 ML BAG IVPB ×2 (03:32→11:50)
[2025-06-22 04:51] VITALS: BP 137/73; PULSE 81; RESP 16; TEMP 37.7; O2SAT 99
[2025-06-22] MEDS: HYDROmorphone HCL INJ (*CRX) 2 MG/ML VIAL 1 MG IV PUSH (05:02)
[2025-06-22] MEDS: ONDANSETRON INJ 4 MG/2 ML VIAL IV PUSH (06:18)
[2025-06-22] MEDS: ACETAMINOPHEN 500 MG TABLET PO (06:37)
[2025-06-22 06:45] LABS: Hematocrit 40.5 % (42.0-52.0); Hemoglobin 13.4 g/dL (14.0-18.0); Immature Granulocyte Percent A 0.6 % (0-0.5); Lymphocytes Absolute Auto 1.84 K/mm3 (0.9-3.2); Mean Corpuscular HGB Conc 33.1 g/dl (32-36); Mean Corpuscular Hemoglobin 31.2 pg (26-34); Mean Corpuscular Volume 94.4 fl (80-100); Nucleated Red Blood Cells Absolute Auto 0.000 K/mm3 (0.0-0.012); Nucleated Red Blood Cells Perc 0.0 % (0.0-0.2); Platelet Count Result 297 k/mm3 (150-375); Red Blood Count 4.29 M/mm3 (4.6-6.20); White Blood Count 18.7 K/mm3 (4.5-10.0)
[2025-06-22 07:19] LABS: Anion Gap 13 mmol/L (4-12); Blood Urea Nitrogen 15 mg/dL (9-20); Calcium 8.8 mg/dL (8.4-10.2); Carbon Dioxide 20 mmol/L (22-30); Chloride 104 mmol/L (98-107); Estimated CRCL calculation 66 ml/min; Estimated Glomerular Filt Rate > 60; Glucose 215 mg/dL (65-110); Potassium 3.7 mmol/L (3.4-5.0); Sodium 137 mmol/L (137-145)
[2025-06-22 08:00] VITALS: BP 136/57; PULSE 82; RESP 16; TEMP 36.7; O2SAT 95
[2025-06-22] MEDS: SENNA/DOCUSATE SODIUM TABLET 2 TAB PO (09:58)
[2025-06-22] MEDS: SIMVASTATIN 20 MG TABLET 40 MG PO (09:59)
[2025-06-22] MEDS: ASPIRIN 81 MG ENTERIC TABLET PO (09:59)
[2025-06-22] MEDS: OMEGA 3 POLYUNSAT FATTY ACIDS 1 GM CAP PO (09:59)
[2025-06-22] MEDS: CHOLECALCIFEROL (VITAMIN D3) 25 MCG (1,000 UNITS) TABLET 50 MCG PO (09:59)
[2025-06-22] MEDS: ASCORBIC ACID 250 MG TABLET PO (09:59)
== END 2025-06-22 12:50 | disposition home or self-care (01) ==
LOC: ANHSURGERY 13:25 → ANH3MEDSUR 14:29
PROVIDERS: PCP Internal Medicine; Visit Provider Orthopaedic Surgery
PROC: (CPT 27447; principal; 2025-06-21 10:00)
DX: M17.12 Unilateral primary osteoarthritis, left knee (principal); Z79.84 Long term (current) use of oral hypoglycemic drugs
CPT/HCPCS: 27447; 36415; 73560; 80048; 82948; 85025; 86850; 86900; 86901; 97110; 97116; 97161; 97165; 97530; 97535; J0690; A9270; C1713; C1776; J0166; J1171; J1885; J2003; J2270; J2405; J2704; J2795; J3010; J3301; J7030; J7120; J7512

== ENCOUNTER 2025-07-10 10:46 | Outpatient (CLI) | payer MEDICARE, SELFPAY ==
--- NOTE | ~2025-07-10 | XR_ITS ---
XR knee LT 3V 07/10/2025 11:15 Indication: Recent left knee arthroplasty Procedure: 3 views left knee Comparison: 06/12/2025 and 06/21/2025 Findings: There is a left total knee arthroplasty. Prosthesis well seated. No underlying fracture or evidence of loosening. There is a joint effusion. Impression: 1: No acute bone or joint abnormality. Stable appearance to left knee arthroplasty. Reviewed, dictated and finalized at location A. Impression: 1: No acute bone or joint abnormality. Stable appearance to left knee arthropla sty.
--- OUTSIDE RECORDS SUMMARY | 2025-07-10 11:41 | XMS_ITS | Encounter Summary ---
Author Organization [facility] Health Address [address] [place] [address] Care Team Providers Care Plan Manager Name Role Phone Unavailable Primary Care Provider Unavailabl e Prior Encounters Date Type Department Care Team Description 10/30/2021 Travel 10/30/2021 10:30 AM COSTUME SPECIALIST Office Visit Formerly [facility] [address] [place] [id number] Baljinder Pedro, SANDY 12/18/2019 Converted CPS Chart Documents Formerly [facility] [address] [place] [id number] <No scans attached> 12/18/2019 Converted 13x Documents [facility]ly [facility] [address] [place] [id number] <No scans attached> Plan of Treatment Not on file Procedures Procedure Name Priority Date/Time Associated Diagnosis Comments 31 RECEMENT CROWN Routine 10/30/2021 10: 30 AM COSTUME SPECIALIST BITEWINGS - FOUR RADIOGRAPHIC IMAGES Routine 10/30/2021 10:30 AM COSTUME SPECIALIST PERIODIC ORAL EVALUATION - ESTABLISHED PATIENT Routine 10/30/2021 10:30 AM COSTUME SPECIALIST 30 PFM CROWN Routine 10/30/2021 12:00 AM COSTUME SPECIALIST 19 PFM CROWN Routine 10/30/2021 12:00 AM COSTUME SPECIALIST 31 PFM CROWN Routine 10/30/2021 12:00 AM COSTUME SPECIALIST 18 IMPLANT ZIRCONIA CROWN Routine 2019 2:00 AM COSTUME SPECIALIST 14 IMPLANT ZIRCONIA CROWN Routine 2019 2:00 AM COSTUME SPECIALIST 13 IMPLANT ZIRCONIA CROWN Routine 2019 2:00 AM COSTUME SPECIALIST 18 CUSTOM FABRICATED ABUTMENT INCLUDES PLACEMENT Routine 09/30/2020 2:00 AM COSTUME SPECIALIST 14 CUSTOM FABRICATED ABUTMENT INCLUDES PLACEMENT Routine 09/30/2020 2:00 AM COSTUME SPECIALIST 13 CUSTOM FABRICATED ABUTMENT INCLUDES PLACEMENT Routine 09/30/2020 2:00 AM COSTUME SPECIALIST BITEWINGS - FOUR RADIOGRAPHIC IMAGES Routine 07/05/2020 [...] CIRCUMSTANCES, BY REPORT Routine 01/30/2020 2:00 AM COSTUME SPECIALIST NC X-RAY Routine 01/30/2020 2:00 AM COSTUME SPECIALIST ADDITIONAL X-RAY Routine 01/30/2020 2:00 AM COSTUME SPECIALIST SINGLE X-RAY Routine 01/30/2020 2:00 AM COSTUME SPECIALIST 14 GUIDED TISSUE REGENERATION, NATURAL TEETH - RESORBABLE BARRIER, PER SITE Routine 01/05/2020 2:00 AM COSTUME SPECIALIST 18 IMPLANT Routine 01/05/2020 2:00 AM COSTUME SPECIALIST 14 IMPLANT Routine 01/05/2020 2:00 AM COSTUME SPECIALIST 13 IMPLANT Routine 01/05/2020 2:00 AM COSTUME SPECIALIST 14 SINUS AUGMENTATION WITH BONE OR BONE SUBSTITUTES VIA A LATERAL OPEN APPROACH Routine 01/05/2020 2:00 AM COSTUME SPECIALIST 4 RETAINER CROWN - ZIRCONIA IN OFFICE - POST Routine 01/03/2020 2:00 AM COSTUME SPECIALIST 2 RETAINER CROWN - ZIRCONIA IN OFFICE - POST Routine 01/03/2020 2:00 AM COSTUME SPECIALIST 3 PONTIC - ZIRCONIA IN OFFICE - POST Routine 01/03/2020 2:00 AM COSTUME SPECIALIST 4 CUSTOM FABRICATED ABUTMENT INCLUDES PLACEMENT Routine 01/03/2020 2:00 AM COSTUME SPECIALIST 2 CUSTOM FABRICATED ABUTMENT INCLUDES PLACEMENT Routine 01/03/2020 2:00 AM COSTUME SPECIALIST TREATMENT OF COMPLICATIONS (POST-SURGICAL) - UNUSUAL CIRCUMSTANCES, BY REPORT Routine 12/15/2019 2:00 AM COSTUME SPECIALIST PANORAMIC RADIOGRAPHIC IMAGE Routine 12/15/2019 2:00 AM COSTUME SPECIALIST PERIO MAINTENANCE Routine 08/07/2019 2:0 0 AM [...] ORAL HYGIENE INSTRUCTIONS Routine 2018 2:00 AM COSTUME SPECIALIST OCCLUSAL GUARD HARD APPLIANCE, FULL ARCH Routine 01/31/2019 2:00 AM COSTUME SPECIALIST 18 BONE REPLACEMENT GRAFT FOR RIDGE PRESERVATION - PER SITE Routine 01/31/2019 2:00 AM COSTUME SPECIALIST 13 BONE REPLACEMENT GRAFT FOR RIDGE PRESERVATION - PER SITE Routine 01/31/2019 2:00 AM COSTUME SPECIALIST 3 BONE REPLACEMENT GRAFT FOR RIDGE PRESERVATION - PER SITE Routine 01/31/2019 2:00 AM COSTUME SPECIALIST 2 BONE REPLACEMENT GRAFT FOR RIDGE PRESERVATION - PER SITE Routine 01/31/2019 2:00 AM COSTUME SPECIALIST 18 GUIDED TISSUE REGENERATION, NATURAL TEETH - RESORBABLE BARRIER, PER SITE Routine 01/31/2019 2:00 AM COSTUME SPECIALIST 13 GUIDED TISSUE REGENERATION, NATURAL TEETH - RESORBABLE BARRIER, PER SITE Routine 01/31/2019 2:00 AM COSTUME SPECIALIST 9 GUIDED TISSUE REGENERATION, NATURAL TEETH - RESORBABLE BARRIER, PER SITE Routine 01/31/2019 2:00 AM COSTUME SPECIALIST 3 GUIDED TISSUE REGENERATION, NATURAL TEETH - RESORBABLE BARRIER, PER SITE Routine 01/31/2019 2:00 AM COSTUME SPECIALIST 2 GUIDED TISSUE REGENERATION, NATURAL TEETH - RESORBABLE BARRIER, PER SITE Routine 01/31/2019 2:00 AM COSTUME SPECIALIST 9 BONE REPLACEMENT GRAFT RETAINED NATURAL TOOTH FIRST SITE IN QUADRANT Routine 01/31/2019 2:00 AM COSTUME SPECIALIST UR PERIODONTAL SCALING AND ROOT PLANING - FOUR OR MORE TEETH PER QUADRANT Routine 01/31/2019 2:00 AM COSTUME SPECIALIST LR PERIODONTAL SCALING AND ROOT PLANING - FOUR OR MORE TEETH PER QUADRANT Routine 01/31/2019 2:00 AM COSTUME SPECIALIST LL PERIODONTAL SCALING AND ROOT PLANING - FOUR OR MORE TEETH PER QUADRANT Routine 01/31/2019 2:00 AM COSTUME SPECIALIST 14 UL OSSEOUS SURGERY ONE TO THREE CONTIGUOUS TEETH Routine 01/31/2019 2:00 AM COSTUME SPECIALIST 18 EXTRACTION, ERUPTED TOOTH REQUIRING REMOVAL OF BONE AND/OR SECTIONING OF TOOTH Routine 01/31/2019 2:00 AM COSTUME SPECIALIST 13 EXTRACTION, ERUPTED TOOTH REQUIRING REMOVAL OF BONE AND/OR SECTIONING OF TOOTH Routine 01/31/2019 2:00 AM COSTUME SPECIALIST 3 EXTRACTION, ERUPTED TOOTH REQUIRING REMOVAL OF BONE AND/OR SECTIONING OF TOOTH Routine 01/31/2019 2:00 AM COSTUME SPECIALIST 2 EXTRACTION, ERUPTED TOOTH REQUIRING REMOVAL OF BONE AND/OR SECTIONING OF TOOTH Routine 01/31/2019 2:00 AM COSTUME SPECIALIST PERIO CONSULT Routine 01/17/2019 2:00 AM COSTUME SPECIALIST Visit Diagnoses Not on file Insurance
--- OUTSIDE RECORDS SUMMARY | 2025-07-10 11:41 | XMS_ITS | Clinical Summary ---
Author Organization [facility] Address [address] [place] [address] Care Team Providers Care Caustic Plant Worker Name Role Phone Baljinder Asencio MD Primary Care Provider [phone] Source Comments [facility],non-owned Affiliates and Associated Physician Practices is amultiple site organization consisting of ambulatory clinics and hospital sitesin [place], [place], [place] and [place]. This disclosure is being madepursuant to the Care Everywhere program and may not contain all information available regarding this patient. Last updated 18.[facility] Immunizations Immunization Administration Dates Next Due INFLUENZA [...] to complete this topic Insurance Care Teams Caustic Plant Worker Relationship Specialty Start Date End Date Baljinder Asencio MD [address] [facility] [address] [place], [place] [id number] PCP - General Family Medicine 09/02/16
--- OUTSIDE RECORDS SUMMARY | 2025-07-10 11:41 | XMS_ITS | Clinical Summary ---
Author Organization [facility] Health Address [address] [place] [address] Care Team Providers Care Airport Operations Duty Manager Name Role Phone Unavailable Primary Care [...] - ESTABLISHED PATIENT Routine 10/30/2021 10:30 AM NEON SIGN SERVICER PANORAMIC RADIOGRAPHIC IMAGE Routine 07/04/2020 2:00 AM CDT PERIO MAINTENANCE Routine 08/07/2019 2:0 0 AM CDT LL PERIODONTAL SCALING AND ROOT PLANING - FOUR OR MORE TEETH PER QUADRANT Routine 01/31/2019 2:00 AM NEON SIGN SERVICER from Last 3 Months or Most Recently Relevant to Health Maintenance Insurance PPO
== END 2025-07-10 10:47 | disposition home or self-care (01) ==
PROVIDERS: PCP Internal Medicine; Visit Provider Orthopaedic Surgery
DX: Z96.652 Presence of left artificial knee joint (principal)
CPT/HCPCS: 73562

== ENCOUNTER 2025-07-19 08:45 | Outpatient (RCR) | payer MEDICARE, SELFPAY ==
--- NOTE | 2025-07-05 13:51 | OPREHPOC ---
Outpatient Therapy Plan of Care This is a Multidisciplinary Plan of Care that may contain components documented by all disciplines (PT, OT, and ST.) PT Problem 1 PT Problem #1 Knowledge Deficit PT Goal 1 Goal / Goal Update Starke with HEP Target Visit 4 PT Goal 2 Goal / Goal Update Report 0/10 pain consistently for 2 weeks Target Visit 8 PT Goal 1 Goal / Goal Update 1. Achieve terminal knee extension 2. Improve L knee flexion ROM to 125 degrees Target Visit 8 PT Problem 3 PT Problem #3 Impaired Functional Mobility PT Goal 1 Goal / Goal Update Report 20% improvement in LEFS score for improved gross functional capability Target Visit 8
--- NOTE | 2025-07-05 13:51 | PTOPEVAL1 ---
Assessment and note entered by Jose Guadalupe Simmons, PT Evaluation Information Assessment Status Evaluation Diagnosis S/P L TKA ICD-10 Condition Codes (PT) Pain in left knee M25.562 Onset 06/21/25 Subjective Information Reports that overall he is doing well other than when he was on narcotics for pain. He is currently taking medication as needed but does not feel he needs it much at this point. He is sleeping well but is sleeping on his side and using a pillow. He has stairs in home and feels he is doing well with them. Reports that he is getting some heel cord pain and has pain with pushing into knee extension stretch. Reported Pain Level Pain Score 0: Self Report Assessment PT Clinical Summary Patient presents with signs and symptoms typical of post operative total knee arthroplasty. Demonstrates joint line swelling, ROM loss, and altered gait pattern. Will benefit form skilled therapy to address these deficits for mobility and full functional return. Plan of Care PT Services Indicated Yes Treatment Frequency and 2x/week for 8 visits Duration These treatments will address the objective and functional deficits as defined above. The patient will be advanced safely and appropriately in order for the patient to progress towards his/her prior level of function. Additional exercises will be introduced and as well as a comprehensive home exercise program upon discharge, if needed, ?to ensure carryover of functional gains achieved in the clinic. This treatment plan has been reviewed and agreement upon by the patient.
--- NOTE | 2025-10-15 13:36 | PCPTNOTE ---
Patient last present for physical therapy on 07/19/25. Patient has not returned and is discharged for therapy at this time. Please refer to last treatment note for discharge status.
== END 2025-10-03 23:59 | disposition home or self-care (01) ==
LOC: ANHPT 08:45
PROVIDERS: PCP Internal Medicine; Visit Provider Orthopaedic Surgery
DX: Z47.1 Aftercare following joint replacement surgery (principal); Z96.652 Presence of left artificial knee joint
CPT/HCPCS: 97110; 97116; 97140; 97161; 97530